=== PATIENT | male | born 1940 | race American Indian/Alaskan Native ===

== ENCOUNTER 2019-07-26 22:38 | Inpatient (IN) | payer MEDICARE ==
[2019-07-27] MEDS ORDERED: GEODON PO PRN (01:29)
[2019-07-27] MEDS ORDERED: BENADRYL PO PRN (01:34)
[2019-07-27 10:16] LABS: Basophils % (Auto) 0.7 % (0.0-1.8); Eosinophils % (Auto) 0.1 % (0.0-4.3); Hematocrit 44.2 % (35.5-45.6); Hemoglobin 14.8 gm/dl (11.8-15.2); Lymphocytes # (Auto) 1.5 K/mm3 (1.2-5.4); Lymphocytes % (Auto) 23.4 % (13.4-35.0); Mean Corpuscular HGB Conc 33 % (32-34); Mean Corpuscular Volume 90 fl (84-94); Monocytes # (Auto) 0.6 K/mm3 (0.0-0.8); Monocytes % (Auto) 10.1 % (0.0-7.3); Platelet Count 158 K/mm3 (140-440); Red Blood Count 4.94 M/mm3 (3.65-5.03); Red Cell Distribution Width 15.8 % (13.2-15.2)
[2019-07-27 10:42] LABS: Alanine Aminotransferase 20 units/L (7-56); Albumin 4.2 g/dL (3.9-5); BUN/Creatinine Ratio 32; Blood Urea Nitrogen 35 mg/dL (9-20); Calcium 9.5 mg/dL (8.4-10.2); Chol/HDL Ratio 3.09 %; HDL Cholesterol 43 mg/dL (40-59); Hemolysis Index 7; LDL Cholesterol,Direct 74 mg/dL (50-130)
[2019-07-27] MEDS: METOPROLOL XL PO SCH (11:20)
[2019-07-27] MEDS: HALFPRIN EC PO SCH (11:21)
[2019-07-27] MEDS: NAPROXEN PO SCH ×2 (11:21→21:18)
[2019-07-27] MEDS: MUCINEX ER PO SCH ×2 (11:22→21:19)
[2019-07-27] MEDS: PROVIGIL PO SCH (11:22)
[2019-07-27] MEDS: CARDIZEM CD PO SCH (11:22)
[2019-07-27] MEDS: BENADRYL IM PRN (11:26)
[2019-07-27] MEDS: EFFEXOR XR PO SCH (19:51)
[2019-07-27] MEDS: MELATONIN PO SCH (21:18)
[2019-07-27] MEDS: REMERON PO SCH (21:23)
[2019-07-28] MEDS: GEODON IM PRN ×2 (00:44→14:56)
[2019-07-28] MEDS ORDERED: WATER FOR INJ Sterile (PF) 10 ML ONE (00:49)
[2019-07-28] MEDS: HALFPRIN EC PO SCH (09:26)
[2019-07-28] MEDS: NAPROXEN PO SCH ×2 (09:26→21:39)
[2019-07-28] MEDS: MUCINEX ER PO SCH ×2 (09:26→21:39)
[2019-07-28] MEDS: EFFEXOR XR PO SCH (09:27)
[2019-07-28] MEDS: CARDIZEM CD PO SCH (09:32)
[2019-07-28] MEDS: METOPROLOL XL PO SCH (09:32)
[2019-07-28] MEDS: PROVIGIL PO SCH (10:01)
--- NOTE | 2019-07-28 18:20 | Consultation ---
History of Present Illness - Reason for Consult Consult date: 07/28/19 Atrial fibrillation, hypertension Requesting physician: SUSAN BENNETT - History of Present Illness patient admitted to Psych floor and hospitalist consulted for medical management. He is confused, cannot give history. Past History Past Medical History: hyperlipidemia, other (afib) Past Surgical History: Other (Unknown) Medications and Allergies Allergies Allergy/AdvReac Type Severity Reaction Status Date / Time aripiprazole [From Abilify] Allergy Unknown Verified 07/26/19 23:01 diazepam [From Valium] Allergy Unknown Verified 07/26/19 23:01 lithium Allergy Unknown Verified 07/26/19 23:01 lorazepam [From Ativan] Allergy Unknown Verified 07/26/19 23:01 Home Medications Medication Instructions Recorded Confirmed Last Taken Type AtorvaSTATin [Lipitor] 40 mg PO QHS 07/27/19 07/28/19 Unknown History Divalproex Sprinkle [Depakote 500 mg PO Q8H 07/27/19 07/28/19 Unknown History Sprinkle] Metoprolol Xl [Metoprolol 50 mg PO DAILY 07/27/19 07/28/19 Unknown History SUCCINATE ER TAB] Mirtazapine [Remeron 30mg TAB] 30 mg PO QHS 07/27/19 07/28/19 Unknown History Modafinil [Provigil] 100 mg PO DAILY 07/27/19 07/28/19 Unknown History Naproxen [Naproxen DR] 375 mg PO BID 07/27/19 07/28/19 Unknown History OLANzapine [ZyPREXA] 5 mg PO TID 07/27/19 07/28/19 Unknown History Venlafaxine ER 150 mg PO DAILY 07/27/19 07/28/19 Unknown History dilTIAZem CD [Cardizem Cd] 120 mg PO DAILY 07/27/19 07/27/19 Unknown History OLANzapine ZYDIS [ZyPREXA Zydis] 10 mg PO TID PRN 07/28/19 07/28/19 Unknown History Active Meds: Active Medications Aspirin (Halfprin Ec) 81 mg PO QDAY [facility] Last Admin: 07/28/19 09:26 Dose: 81 mg Documented by: Atorvastatin Calcium (Lipitor) 40 mg PO QHS [facility] Last Admin: 07/27/19 21:18 Dose: 40 mg Documented by: Diltiazem HCl (Cardizem Cd) 120 mg PO QDAY [facility] Last Admin: 07/28/19 09:32 Dose: Not Given Documented by: Diphenhydramine HCl (Benadryl) 50 mg IM Q6H PRN PRN Reason: Extrapyramidal Effects Last Admin: 07/27/19 11:26 Dose: 50 mg Documented by: Diphenhydramine HCl (Benadryl) 50 mg PO Q6H PRN PRN Reason: Extrapyramidal Effects Divalproex Sodium (Depakote Sprinkle) 500 mg PO Q8HR [facility] Last Admin: 07/28/19 13:40 Dose: 500 mg Documented by: Guaifenesin (Mucinex Er) 600 mg PO BID [facility] Last Admin: 07/28/19 09:26 Dose: 600 mg Documented by: Melatonin (Melatonin) 3 mg PO QHS [facility] Last Admin: 07/27/19 21:18 Dose: 3 mg Documented by: Metoprolol Succinate (Toprol Xl) 50 mg PO QDAY [facility] Last Admin: 07/28/19 09:32 Dose: Not Given Documented by: Mirtazapine (Remeron) 30 mg PO QHS [facility] Last Admin: 07/27/19 21:23 Dose: 30 mg Documented by: Modafinil (Provigil) 100 mg PO QAM [facility] Last Admin: 07/28/19 10:01 Dose: 100 mg Documented by: Naproxen (Naprosyn) 375 mg PO BID [facility] Last Admin: 07/28/19 09:26 Dose: 375 mg Documented by: Olanzapine (Zyprexa Zydis) 10 mg PO TID PRN PRN Reason: Agitation Last Admin: 07/27/19 17:52 Dose: 10 mg Documented by: Olanzapine (Zyprexa Zydis) 5 mg PO TID [facility] Last Admin: 07/28/19 13:41 Dose: 5 mg Documented by: Venlafaxine HCl (Effexor Xr) 150 mg PO QDAY [facility] Last Admin: 07/28/19 09:27 Dose: 150 mg Documented by: Exam - Constitutional Vitals: Temp Pulse Resp BP Pulse Ox 97.9 F 60 18 90/60 100 07/27/19 21:54 07/28/19 09:32 07/27/19 21:54 07/28/19 09:32 07/27/19 10:00 General appearance: Present: no acute distress - EENT Eyes: Present: PERRL ENT: hearing intact - Neck Neck: Present: supple - Respiratory Respiratory effort: normal Respiratory: bilateral: CTA - Cardiovascular Rhythm: regular Heart Sounds: Present: S1 & S2 (S1 and S2 ) - Extremities Extremities: No edema Extremity abnormal: other (small abrasions,ulcer on legs) - Abdominal General gastrointestinal: Present: soft, non-tender, non-distended, normal bowel sounds - Integumentary Integumentary: Present: clear, warm, dry - Musculoskeletal Musculoskeletal: strength equal bilaterally - Neurologic Neurologic: moves all extremities, other (awake,alert,confused) Results - Labs CBC & Chem 7: 07/27/19 09:24 07/27/19 09:24 Assessment and Plan Hyperlipidemia cont statin Afib Obtain EKG for baseline
[2019-07-28] MEDS: MELATONIN PO SCH (21:40)
[2019-07-28] MEDS: REMERON PO SCH (21:40)
[2019-07-29] MEDS: CARDIZEM CD PO SCH (10:35)
[2019-07-29] MEDS: PROVIGIL PO SCH (10:35)
[2019-07-29] MEDS: NAPROXEN PO SCH ×2 (10:36→21:32)
[2019-07-29] MEDS: HALFPRIN EC PO SCH (10:37)
[2019-07-29] MEDS: MUCINEX ER PO SCH ×2 (10:37→21:31)
[2019-07-29] MEDS: METOPROLOL XL PO SCH (10:37)
[2019-07-29] MEDS: EFFEXOR XR PO SCH (10:37)
[2019-07-29] MEDS: HALDOL IM PRN (14:55)
[2019-07-29] MEDS: BENADRYL IM PRN (14:55)
--- NOTE | 2019-07-29 15:22 | History and Physical Report ---
GP History & Physical - History of Present Illness Date of admission: 07/27/19 Date of Examination: 07/28/19 Reason for Admission: Danger to others, Unable to care for self Chief Complaint: Aggression History of Present Illness: Patient is a 78yo male with reported history of psychosis, schizoaffective disorder and aggressive behavior. He was presents to the Behavioral Health Unit with c/o aggressive behavior, not cooperative with cares and disruptive behaviors. He is confused, agitated and unable to give history. Legal Status: Involuntary Patient Problems: Current Active Problems Major neurocognitive disorder due to Alzheimer's disease, with behavioral disturbance (Acute) Schizoaffective disorder, bipolar type (Acute) Reaction to Hospitalization: Resistant Medications and Allergies Allergies Allergy/AdvReac Type Severity Reaction Status Date / Time aripiprazole [From Abilify] Allergy Unknown Verified 07/26/19 23:01 diazepam [From Valium] Allergy Unknown Verified 07/26/19 23:01 lithium Allergy Unknown Verified 07/26/19 23:01 lorazepam [From Ativan] Allergy Unknown Verified 07/26/19 23:01 Home Medications Medication Instructions Recorded Confirmed Last Taken Type AtorvaSTATin [Lipitor] 40 mg PO QHS 07/27/19 07/28/19 Unknown History Divalproex Sprinkle [Depakote 500 mg PO Q8H 07/27/19 07/28/19 Unknown History Sprinkle] Metoprolol Xl [Metoprolol 50 mg PO DAILY 07/27/19 07/28/19 Unknown History SUCCINATE ER TAB] Mirtazapine [Remeron 30mg TAB] 30 mg PO QHS 07/27/19 07/28/19 Unknown History Modafinil [Provigil] 100 mg PO DAILY 07/27/19 07/28/19 Unknown History Naproxen [Naproxen DR] 375 mg PO BID 07/27/19 07/28/19 Unknown History OLANzapine [ZyPREXA] 5 mg PO TID 07/27/19 07/28/19 Unknown History Venlafaxine ER 150 mg PO DAILY 07/27/19 07/28/19 Unknown History dilTIAZem CD [Cardizem Cd] 120 mg PO DAILY 07/27/19 07/27/19 Unknown History OLANzapine ZYDIS [ZyPREXA Zydis] 10 mg PO TID PRN 07/28/19 07/28/19 Unknown History Active Meds: Active Medications Aspirin (Halfprin Ec) 81 mg PO QDAY [facility] Last Admin: 07/29/19 10:37 Dose: 81 mg Documented by: Atorvastatin Calcium (Lipitor) 40 mg PO QHS [facility] Last Admin: 07/28/19 21:39 Dose: 40 mg Documented by: Diltiazem HCl (Cardizem Cd) 120 mg PO QDAY [facility] Last Admin: 07/29/19 10:35 Dose: 120 mg Documented by: Diphenhydramine HCl (Benadryl) 50 mg IM Q6H PRN PRN Reason: Extrapyramidal Effects Last Admin: 07/29/19 14:55 Dose: 50 mg Documented by: Diphenhydramine HCl (Benadryl) 50 mg PO Q6H PRN PRN Reason: Extrapyramidal Effects Divalproex Sodium (Depakote Sprinkle) 500 mg PO Q8HR [facility] Last Admin: 07/29/19 14:23 Dose: 500 mg Documented by: Guaifenesin (Mucinex Er) 600 mg PO BID [facility] Last Admin: 07/29/19 10:37 Dose: 600 mg Documented by: Haloperidol (Haldol) 5 mg PO Q6H PRN PRN Reason: Agitation Haloperidol Lactate (Haldol) 5 mg IM Q6H PRN PRN Reason: Agitation Last Admin: 07/29/19 14:55 Dose: 5 mg Documented by: Melatonin (Melatonin) 3 mg PO QHS [facility] Last Admin: 07/28/19 21:40 Dose: 3 mg Documented by: Metoprolol Succinate (Toprol Xl) 50 mg PO QDAY [facility] Last Admin: 07/29/19 10:37 Dose: 50 mg Documented by: Mirtazapine (Remeron) 30 mg PO QHS [facility] Last Admin: 07/28/19 21:40 Dose: 30 mg Documented by: Modafinil (Provigil) 100 mg PO QAM [facility] Last Admin: 07/29/19 10:35 Dose: 100 mg Documented by: Naproxen (Naprosyn) 375 mg PO BID [facility] Last Admin: 07/29/19 10:36 Dose: 375 mg Documented by: Olanzapine (Zyprexa Zydis) 10 mg PO TID PRN PRN Reason: Agitation Last Admin: 07/27/19 17:52 Dose: 10 mg Documented by: Olanzapine (Zyprexa Zydis) 5 mg PO TID [facility] Last Admin: 07/29/19 14:24 Dose: 5 mg Documented by: Venlafaxine HCl (Effexor Xr) 150 mg PO QDAY [facility] Last Admin: 07/29/19 10:37 Dose: 150 mg Documented by: Substance History - Substance History Drug Use: none Hx Tobacco Use: No Alcohol Use: No Past psychiatric history - Past Medical History Past Medical History: hyperlipidemia - past Psychiatric treatment and history Psych: Psychosis - Social History Social history: other (Unable to obtain Social history) Review of Systems ROS unobtainable: due to mental status Results - Results Labs/Vitals: Laboratory Last Values WBC 6.2 K/mm3 (4.5-11.0) 07/27/19 09:24 RBC 4.94 M/mm3 (3.65-5.03) 07/27/19 09:24 Hgb 14.8 gm/dl (11.8-15.2) 07/27/19 09:24 Hct 44.2 % (35.5-45.6) 07/27/19 09:24 MCV 90 fl (84-94) 07/27/19 09:24 MCH 30 pg (28-32) 07/27/19 09:24 MCHC 33 % (32-34) 07/27/19 09:24 RDW 15.8 % (13.2-15.2) H 07/27/19 09:24 Plt Count 158 K/mm3 (140-440) 07/27/19 09:24 Lymph % (Auto) 23.4 % (13.4-35.0) 07/27/19 09:24 [place] % (Auto) 10.1 % (0.0-7.3) H 07/27/19 09:24 Eos % (Auto) 0.1 % (0.0-4.3) 07/27/19 09:24 Baso % (Auto) 0.7 % (0.0-1.8) 07/27/19 09:24 Lymph # 1.5 K/mm3 (1.2-5.4) 07/27/19 09:24 [place] # 0.6 K/mm3 (0.0-0.8) 07/27/19 09:24 Eos # 0.0 K/mm3 (0.0-0.4) 07/27/19 09:24 Baso # 0.0 K/mm3 (0.0-0.1) 07/27/19 09:24 Seg Neutrophils % 65.7 % (40.0-70.0) 07/27/19 09:24 Seg Neutrophils # 4.1 K/mm3 (1.8-7.7) 07/27/19 09:24 Sodium 145 mmol/L (137-145) 07/27/19 09:24 Potassium 4.3 mmol/L (3.6-5.0) 07/27/19 09:24 Chloride 104.1 mmol/L (98-107) 07/27/19 09:24 Carbon Dioxide 25 mmol/L (22-30) 07/27/19 09:24 Anion Gap 20 mmol/L 07/27/19 09:24 BUN 35 mg/dL (9-20) H 07/27/19 09:24 Creatinine 1.1 mg/dL (0.8-1.5) 07/27/19 09:24 Estimated GFR > 60 ml/min 07/27/19 09:24 BUN/Creatinine Ratio 32 % 07/27/19 09:24 Glucose 98 mg/dL (75-100) 07/27/19 09:24 POC Glucose 106 (70-105) H 07/27/19 16:39 Hemoglobin A1c 5.5 % (4-6) 07/27/19 09:24 Calcium 9.5 mg/dL (8.4-10.2) 07/27/19 09:24 Total Bilirubin 0.40 mg/dL (0.1-1.2) 07/27/19 09:24 AST 29 units/L (5-40) 07/27/19 09:24 ALT 20 units/L (7-56) 07/27/19 09:24 Alkaline Phosphatase 83 units/L (35-129) 07/27/19 09:24 Total Protein 6.5 g/dL (6.3-8.2) 07/27/19 09:24 Albumin 4.2 g/dL (3.9-5) 07/27/19 09:24 Albumin/Globulin Ratio 1.8 % 07/27/19 09:24 Triglycerides 129 mg/dL (2-149) 07/27/19 09:24 Cholesterol 133 mg/dL (50-199) 07/27/19 09:24 LDL Cholesterol Direct 74 mg/dL (50-130) 07/27/19 09:24 HDL Cholesterol 43 mg/dL (40-59) 07/27/19 09:24 Cholesterol/HDL Ratio 3.09 % 07/27/19 09:24 TSH 3.070 mlU/mL (0.270-4.200) 07/27/19 09:24 Valproic Acid 31.8 ug/mL (50-100) L 07/27/19 09:24 RPR Nonreactive (Nonreactive) 07/27/19 09:24 Last Vital Signs Temp 98.3 F 07/28/19 22:00 Pulse 89 07/29/19 10:37 Resp 20 07/28/19 22:00 BP 173/94 07/29/19 10:37 Pulse Ox 98 07/28/19 22:00 Physical Examination - Constitutional Vitals: Vital Signs Temp Pulse Resp BP Pulse Ox 98.3 F 89 20 173/94 98 07/28/19 22:00 07/29/19 10:37 07/28/19 22:00 07/29/19 10:37 07/28/19 22:00 Temperature -Last 24 Hours Temperature 98.3 F General appearance: Present: no acute distress - EENT Eyes: Present: PERRL, EOM intact ENT: hearing intact, clear oral mucosa - Neck Neck: Present: supple, normal ROM - Respiratory Respiratory effort: normal Mental Status Exam - Vital signs Last Vital Signs Temp 98.3 F 07/28/19 22:00 Pulse 89 07/29/19 10:37 Resp 20 07/28/19 22:00 BP 173/94 07/29/19 10:37 Pulse Ox 98 07/28/19 22:00 - Exam Orientation: person Affect: agitated Mood: congruent with affect Thought Process: Disorganized Perceptions: none Speech: paucity Concentration: unable to pay attention Motor activity: agitated Level of consciousness: alert Memory: Recent Impaired, Remote Impaired Interaction: hostile, uncooperative Assessment and Plan - Psychiatric problem (1) Major neurocognitive disorder due to Alzheimer's disease, with behavioral disturbance Current Visit: Yes Status: Acute (2) Schizoaffective disorder, bipolar type Current Visit: Yes Status: Acute plan to address problem: Patient will be admitted for inpatient psychiatric evaluation, medication adjustment and close monitoring The patient's behavior, mood, sleep and appetite will be closely monitored. Patient will be enrolled in individual and group therapeutic sessions and encouraged to attend. Patient will be provided with a safe and structured environment. Patient's physical health needs will be addressed by the Hospitalist. Social Assessment will be completed and the Social Science Analyst will work with patient and family to ensure a suitable and safe disposition Medication adjustment will be made as clinically indicated The patient agreed on the treatment plan, understood the risk, benefit, alternative treatment, potential consequence of no treatment, and gave informed consent. Physician Certification - Certification Statement Physician Certification Statement: This is an acknowledgement statement that BEATA KEEN is a 78 year old M who requires inpatient psychiatric admission for treatment which could reasonably be expected to improve the patient's condition for behavioral disturbance Estimated period of time patient will need to remain in the hospital: 7 days Plan for post-hospital care: Out-patient care
--- NOTE | 2019-07-29 15:49 | Progress Note ---
Subjective Date of service: 07/29/19 Principal diagnosis: Dementia, Schizoaffective disorder Subjective Comment: The patient patient's mood is labile and he is very unpredictable, can be combative, impulsive, and irritable but calm and cooperative some times. He is irritable, threatening and uncooperative this morning. MSE Orientation: person Affect: agitated Mood: congruent with affect Thought Process: Disorganized Perceptions: none Speech: paucity Concentration: unable to pay attention Motor activity: agitated Level of consciousness: alert Memory: Recent Impaired, Remote Impaired Interaction: hostile, uncooperative Objective - Criteria for Continued Treatment Criteria for Continued Treatment: Improving Level of Functioning, Stablizing Level of Functioning, Improving Emotional/Socia - Objective Observation Participation Level: Minimal Assessment and Plan - Patient Problems (1) Major neurocognitive disorder due to Alzheimer's disease, with behavioral disturbance Current Visit: Yes Status: Acute (2) Schizoaffective disorder, bipolar type Current Visit: Yes Status: Acute Plan to address problem: Patient will be admitted for inpatient psychiatric evaluation, medication adjustment and close monitoring The patient's behavior, mood, sleep and appetite will be closely monitored. Patient will be enrolled in individual and group therapeutic sessions and encouraged to attend. Patient will be provided with a safe and structured environment. Patient's physical health needs will be addressed by the Hospitalist. Social Assessment will be completed and the Fretted Instrument Inspector will work with patient and family to ensure a suitable and safe disposition Medication adjustment will be made as clinically indicated The patient agreed on the treatment plan, understood the risk, benefit, alternative treatment, potential consequence of no treatment, and gave informed consent. Medications and Allergies Allergies Allergy/AdvReac Type Severity Reaction Status Date / Time aripiprazole [From Abilify] Allergy Unknown Verified 07/26/19 23:01 diazepam [From Valium] Allergy Unknown Verified 07/26/19 23:01 lithium Allergy Unknown Verified 07/26/19 23:01 lorazepam [From Ativan] Allergy Unknown Verified 07/26/19 23:01 Home Medications Medication Instructions Recorded Confirmed Last Taken Type AtorvaSTATin [Lipitor] 40 mg PO QHS 07/27/19 07/28/19 Unknown History Divalproex Sprinkle [Depakote 500 mg PO Q8H 07/27/19 07/28/19 Unknown History Sprinkle] Metoprolol Xl [Metoprolol 50 mg PO DAILY 07/27/19 07/28/19 Unknown History SUCCINATE ER TAB] Mirtazapine [Remeron 30mg TAB] 30 mg PO QHS 07/27/19 07/28/19 Unknown History Modafinil [Provigil] 100 mg PO DAILY 07/27/19 07/28/19 Unknown History Naproxen [Naproxen DR] 375 mg PO BID 07/27/19 07/28/19 Unknown History OLANzapine [ZyPREXA] 5 mg PO TID 07/27/19 07/28/19 Unknown History Venlafaxine ER 150 mg PO DAILY 07/27/19 07/28/19 Unknown History dilTIAZem CD [Cardizem Cd] 120 mg PO DAILY 07/27/19 07/27/19 Unknown History OLANzapine ZYDIS [ZyPREXA Zydis] 10 mg PO TID PRN 07/28/19 07/28/19 Unknown History Active Meds: Active Medications Aspirin (Halfprin Ec) 81 mg PO QDAY [facility] Last Admin: 07/29/19 10:37 Dose: 81 mg Documented by: Atorvastatin Calcium (Lipitor) 40 mg PO QHS [facility] Last Admin: 07/28/19 21:39 Dose: 40 mg Documented by: Diltiazem HCl (Cardizem Cd) 120 mg PO QDAY [facility] Last Admin: 07/29/19 10:35 Dose: 120 mg Documented by: Diphenhydramine HCl (Benadryl) 50 mg IM Q6H PRN PRN Reason: Extrapyramidal Effects Last Admin: 07/29/19 14:55 Dose: 50 mg Documented by: Diphenhydramine HCl (Benadryl) 50 mg PO Q6H PRN PRN Reason: Extrapyramidal Effects Divalproex Sodium (Depakote Sprinkle) 500 mg PO Q8HR [facility] Last Admin: 07/29/19 14:23 Dose: 500 mg Documented by: Guaifenesin (Mucinex Er) 600 mg PO BID [facility] Last Admin: 07/29/19 10:37 Dose: 600 mg Documented by: Haloperidol (Haldol) 5 mg PO Q6H PRN PRN Reason: Agitation Haloperidol Lactate (Haldol) 5 mg IM Q6H PRN PRN Reason: Agitation Last Admin: 07/29/19 14:55 Dose: 5 mg Documented by: Melatonin (Melatonin) 3 mg PO QHS [facility] Last Admin: 07/28/19 21:40 Dose: 3 mg Documented by: Metoprolol Succinate (Toprol Xl) 50 mg PO QDAY [facility] Last Admin: 07/29/19 10:37 Dose: 50 mg Documented by: Mirtazapine (Remeron) 30 mg PO QHS [facility] Last Admin: 07/28/19 21:40 Dose: 30 mg Documented by: Modafinil (Provigil) 100 mg PO QAM [facility] Last Admin: 07/29/19 10:35 Dose: 100 mg Documented by: Naproxen (Naprosyn) 375 mg PO BID [facility] Last Admin: 07/29/19 10:36 Dose: 375 mg Documented by: Olanzapine (Zyprexa Zydis) 10 mg PO TID PRN PRN Reason: Agitation Last Admin: 07/27/19 17:52 Dose: 10 mg Documented by: Olanzapine (Zyprexa Zydis) 5 mg PO TID [facility] Last Admin: 07/29/19 14:24 Dose: 5 mg Documented by: Venlafaxine HCl (Effexor Xr) 150 mg PO QDAY [facility] Last Admin: 07/29/19 10:37 Dose: 150 mg Documented by: Results - Results Labs/Vitals: Laboratory Last Values WBC 6.2 K/mm3 (4.5-11.0) 07/27/19 09:24 RBC 4.94 M/mm3 (3.65-5.03) 07/27/19 09:24 Hgb 14.8 gm/dl (11.8-15.2) 07/27/19 09:24 Hct 44.2 % (35.5-45.6) 07/27/19 09:24 MCV 90 fl (84-94) 07/27/19 09:24 MCH 30 pg (28-32) 07/27/19 09:24 MCHC 33 % (32-34) 07/27/19 09:24 RDW 15.8 % (13.2-15.2) H 07/27/19 09:24 Plt Count 158 K/mm3 (140-440) 07/27/19 09:24 Lymph % (Auto) 23.4 % (13.4-35.0) 07/27/19 09:24 [place] % (Auto) 10.1 % (0.0-7.3) H 07/27/19 09:24 Eos % (Auto) 0.1 % (0.0-4.3) 07/27/19 09:24 Baso % (Auto) 0.7 % (0.0-1.8) 07/27/19 09:24 Lymph # 1.5 K/mm3 (1.2-5.4) 07/27/19 09:24 [place] # 0.6 K/mm3 (0.0-0.8) 07/27/19 09:24 Eos # 0.0 K/mm3 (0.0-0.4) 07/27/19 09:24 Baso # 0.0 K/mm3 (0.0-0.1) 07/27/19 09:24 Seg Neutrophils % 65.7 % (40.0-70.0) 07/27/19 09:24 Seg Neutrophils # 4.1 K/mm3 (1.8-7.7) 07/27/19 09:24 Sodium 145 mmol/L (137-145) 07/27/19 09:24 Potassium 4.3 mmol/L (3.6-5.0) 07/27/19 09:24 Chloride 104.1 mmol/L (98-107) 07/27/19 09:24 Carbon Dioxide 25 mmol/L (22-30) 07/27/19 09:24 Anion Gap 20 mmol/L 07/27/19 09:24 BUN 35 mg/dL (9-20) H 07/27/19 09:24 Creatinine 1.1 mg/dL (0.8-1.5) 07/27/19 09:24 Estimated GFR > 60 ml/min 07/27/19 09:24 BUN/Creatinine Ratio 32 % 07/27/19 09:24 Glucose 98 mg/dL (75-100) 07/27/19 09:24 POC Glucose 106 (70-105) H 07/27/19 16:39 Hemoglobin A1c 5.5 % (4-6) 07/27/19 09:24 Calcium 9.5 mg/dL (8.4-10.2) 07/27/19 09:24 Total Bilirubin 0.40 mg/dL (0.1-1.2) 07/27/19 09:24 AST 29 units/L (5-40) 07/27/19 09:24 ALT 20 units/L (7-56) 07/27/19 09:24 Alkaline Phosphatase 83 units/L (35-129) 07/27/19 09:24 Total Protein 6.5 g/dL (6.3-8.2) 07/27/19 09:24 Albumin 4.2 g/dL (3.9-5) 07/27/19 09:24 Albumin/Globulin Ratio 1.8 % 07/27/19 09:24 Triglycerides 129 mg/dL (2-149) 07/27/19 09:24 Cholesterol 133 mg/dL (50-199) 07/27/19 09:24 LDL Cholesterol Direct 74 mg/dL (50-130) 07/27/19 09:24 HDL Cholesterol 43 mg/dL (40-59) 07/27/19 09:24 Cholesterol/HDL Ratio 3.09 % 07/27/19 09:24 TSH 3.070 mlU/mL (0.270-4.200) 07/27/19 09:24 Valproic Acid 31.8 ug/mL (50-100) L 07/27/19 09:24 RPR Nonreactive (Nonreactive) 07/27/19 09:24 Last Vital Signs Temp 98.3 F 07/28/19 22:00 Pulse 89 07/29/19 10:37 Resp 20 07/28/19 22:00 BP 173/94 07/29/19 10:37 Pulse Ox 98 07/28/19 22:00
[2019-07-29] MEDS: REMERON PO SCH (21:31)
[2019-07-29] MEDS: MELATONIN PO SCH (21:32)
--- NOTE | 2019-07-30 07:23 | Progress Note ---
Subjective Date of service: 07/30/19 Principal diagnosis: Dementia, Schizoaffective disorder Subjective Comment: Patient seen by me this morning. He is restless, agitated and confused. Per nursing notes patient is alert and oriented to person. Patient has been irritable and restless, Pt continues to be impulsive and unpredictable. He is a/o to self and is able to follow simple directions. Pt is currently taking prn meds to stay calm. Pt is compliant with meds when crushed, appetite is good, pt needs assistance with feeding and with adls. Pt is able to stand and pivot, gait unsteady and he remains a high fall risk. Pt slept well hob elevated due to sleep apnea and snoring. Pt slept for 7 hrs. MSE Orientation: person Affect: agitated Mood: congruent with affect Thought Process: Disorganized Perceptions: none Speech: paucity Concentration: unable to pay attention Motor activity: agitated Level of consciousness: alert Memory: Recent Impaired, Remote Impaired Interaction: hostile, uncooperative Objective - Criteria for Continued Treatment Criteria for Continued Treatment: Improving Level of Functioning, Stablizing Level of Functioning, Improving Emotional/Socia - Objective Observation Participation Level: Minimal Assessment and Plan - Patient Problems (1) Major neurocognitive disorder due to Alzheimer's disease, with behavioral disturbance Current Visit: Yes Status: Acute (2) Schizoaffective disorder, bipolar type Current Visit: Yes Status: Acute Plan to address problem: Patient will be admitted for inpatient psychiatric evaluation, medication adjustment and close monitoring The patient's behavior, mood, sleep and appetite will be closely monitored. Patient will be enrolled in individual and group therapeutic sessions and encouraged to attend. Patient will be provided with a safe and structured environment. Patient's physical health needs will be addressed by the Hospitalist. Social Assessment will be completed and the Wood Carver will work with patient and family to ensure a suitable and safe disposition Medication adjustment will be made as clinically indicated Check Depakote level in am tomorrow. The patient agreed on the treatment plan, understood the risk, benefit, alternative treatment, potential consequence of no treatment, and gave informed consent. Medications and Allergies Allergies Allergy/AdvReac Type Severity Reaction Status Date / Time aripiprazole [From Abilify] Allergy Unknown Verified 07/26/19 23:01 diazepam [From Valium] Allergy Unknown Verified 07/26/19 23:01 lithium Allergy Unknown Verified 07/26/19 23:01 lorazepam [From Ativan] Allergy Unknown Verified 07/26/19 23:01 Home Medications Medication Instructions Recorded Confirmed Last Taken Type AtorvaSTATin [Lipitor] 40 mg PO QHS 07/27/19 07/28/19 Unknown History Divalproex Sprinkle [Depakote 500 mg PO Q8H 07/27/19 07/28/19 Unknown History Sprinkle] Metoprolol Xl [Metoprolol 50 mg PO DAILY 07/27/19 07/28/19 Unknown History SUCCINATE ER TAB] Mirtazapine [Remeron 30mg TAB] 30 mg PO QHS 07/27/19 07/28/19 Unknown History Modafinil [Provigil] 100 mg PO DAILY 07/27/19 07/28/19 Unknown History Naproxen [Naproxen DR] 375 mg PO BID 07/27/19 07/28/19 Unknown History OLANzapine [ZyPREXA] 5 mg PO TID 07/27/19 07/28/19 Unknown History Venlafaxine ER 150 mg PO DAILY 07/27/19 07/28/19 Unknown History dilTIAZem CD [Cardizem Cd] 120 mg PO DAILY 07/27/19 07/27/19 Unknown History OLANzapine ZYDIS [ZyPREXA Zydis] 10 mg PO TID PRN 07/28/19 07/28/19 Unknown History Active Meds: Active Medications Aspirin (Halfprin Ec) [address] [facility] Last Admin: 07/29/19 10:37 Dose: 81 mg Documented by: Atorvastatin Calcium (Lipitor) [address] [facility] Last Admin: 07/29/19 21:31 Dose: 40 mg Documented by: Diltiazem HCl (Cardizem Cd) [address] [facility] Last Admin: 07/29/19 10:35 Dose: 120 mg Documented by: Diphenhydramine HCl (Benadryl) 50 mg IM Q6H PRN PRN Reason: Extrapyramidal Effects Last Admin: 07/29/19 14:55 Dose: 50 mg Documented by: Diphenhydramine HCl (Benadryl) 50 mg PO Q6H PRN PRN Reason: Extrapyramidal Effects Divalproex Sodium (Depakote Sprinkle) [address] [facility] Last Admin: 07/30/19 06:07 Dose: 500 mg Documented by: Guaifenesin (Mucinex Er) [address] [facility] Last Admin: 07/29/19 21:31 Dose: 600 mg Documented by: Haloperidol (Haldol) 5 mg PO Q6H PRN PRN Reason: Agitation Haloperidol Lactate (Haldol) 5 mg IM Q6H PRN PRN Reason: Agitation Last Admin: 07/29/19 14:55 Dose: 5 mg Documented by: Melatonin (Melatonin) [address] [facility] Last Admin: 07/29/19 21:32 Dose: 3 mg Documented by: Metoprolol Succinate (Toprol Xl) [address] [facility] Last Admin: 07/29/19 10:37 Dose: 50 mg Documented by: Mirtazapine (Remeron) [address] [facility] Last Admin: 07/29/19 21:31 Dose: 30 mg Documented by: Modafinil (Provigil) [address] [facility] Last Admin: 07/29/19 10:35 Dose: 100 mg Documented by: Naproxen (Naprosyn) [address] [facility] Last Admin: 07/29/19 21:32 Dose: 375 mg Documented by: Olanzapine (Zyprexa Zydis) 10 mg PO TID PRN PRN Reason: Agitation Last Admin: 07/27/19 17:52 Dose: 10 mg Documented by: Olanzapine (Zyprexa Zydis) [address] [facility] Last Admin: 07/29/19 20:00 Dose: 5 mg Documented by: Venlafaxine HCl (Effexor Xr) [address] [facility] Last Admin: 07/29/19 10:37 Dose: 150 mg Documented by: Results - Results Labs/Vitals: Laboratory Last Values WBC 6.2 K/mm3 (4.5-11.0) 07/27/19 09:24 RBC 4.94 M/mm3 (3.65-5.03) 07/27/19 09:24 Hgb 14.8 gm/dl (11.8-15.2) 07/27/19 09:24 Hct 44.2 % (35.5-45.6) 07/27/19 09:24 MCV 90 fl (84-94) 07/27/19 09:24 MCH 30 pg (28-32) 07/27/19 09:24 MCHC 33 % (32-34) 07/27/19 09:24 RDW 15.8 % (13.2-15.2) H 07/27/19 09:24 Plt Count 158 K/mm3 (140-440) 07/27/19 09:24 Lymph % (Auto) 23.4 % (13.4-35.0) 07/27/19 09:24 [place] % (Auto) 10.1 % (0.0-7.3) H 07/27/19 09:24 Eos % (Auto) 0.1 % (0.0-4.3) 07/27/19 09:24 Baso % (Auto) 0.7 % (0.0-1.8) 07/27/19 09:24 Lymph # 1.5 K/mm3 (1.2-5.4) 07/27/19 09:24 Grant # 0.6 K/mm3 (0.0-0.8) 07/27/19 09:24 Eos # 0.0 K/mm3 (0.0-0.4) 07/27/19 09:24 Baso # 0.0 K/mm3 (0.0-0.1) 07/27/19 09:24 Seg Neutrophils % 65.7 % (40.0-70.0) 07/27/19 09:24 Seg Neutrophils # 4.1 K/mm3 (1.8-7.7) 07/27/19 09:24 Sodium 145 mmol/L (137-145) 07/27/19 09:24 Potassium 4.3 mmol/L (3.6-5.0) 07/27/19 09:24 Chloride 104.1 mmol/L (98-107) 07/27/19 09:24 Carbon Dioxide 25 mmol/L (22-30) 07/27/19 09:24 Anion Gap 20 mmol/L 07/27/19 09:24 BUN 35 mg/dL (9-20) H 07/27/19 09:24 Creatinine 1.1 mg/dL (0.8-1.5) 07/27/19 09:24 Estimated GFR > 60 ml/min 07/27/19 09:24 BUN/Creatinine Ratio 32 % 07/27/19 09:24 Glucose 98 mg/dL (75-100) 07/27/19 09:24 POC Glucose 106 (70-105) H 07/27/19 16:39 Hemoglobin A1c 5.5 % (4-6) 07/27/19 09:24 Calcium 9.5 mg/dL (8.4-10.2) 07/27/19 09:24 Total Bilirubin 0.40 mg/dL (0.1-1.2) 07/27/19 09:24 AST 29 units/L (5-40) 07/27/19 09:24 ALT 20 units/L (7-56) 07/27/19 09:24 Alkaline Phosphatase 83 units/L (35-129) 07/27/19 09:24 Total Protein 6.5 g/dL (6.3-8.2) 07/27/19 09:24 Albumin 4.2 g/dL (3.9-5) 07/27/19 09:24 Albumin/Globulin Ratio 1.8 % 07/27/19 09:24 Triglycerides 129 mg/dL (2-149) 07/27/19 09:24 Cholesterol 133 mg/dL (50-199) 07/27/19 09:24 LDL Cholesterol Direct 74 mg/dL (50-130) 07/27/19 09:24 HDL Cholesterol 43 mg/dL (40-59) 07/27/19 09:24 Cholesterol/HDL Ratio 3.09 % 07/27/19 09:24 TSH 3.070 mlU/mL (0.270-4.200) 07/27/19 09:24 Valproic Acid 31.8 ug/mL (50-100) L 07/27/19 09:24 RPR Nonreactive (Nonreactive) 07/27/19 09:24 Last Vital Signs Temp 98.2 F 07/29/19 19:23 Pulse 79 07/29/19 19:23 Resp 20 07/29/19 19:23 BP 125/85 07/29/19 19:23 Pulse Ox 99 07/29/19 19:23
[2019-07-30] MEDS: EFFEXOR XR PO SCH (09:24)
[2019-07-30] MEDS: NAPROXEN PO SCH ×2 (09:24→21:54)
[2019-07-30] MEDS: MUCINEX ER PO SCH ×2 (09:24→21:55)
[2019-07-30] MEDS: HALFPRIN EC PO SCH (09:24)
[2019-07-30] MEDS: PROVIGIL PO SCH (09:24)
[2019-07-30] MEDS: HALDOL PO PRN (09:25)
[2019-07-30] MEDS: METOPROLOL XL PO SCH (09:29)
[2019-07-30] MEDS: CARDIZEM CD PO SCH (09:29)
[2019-07-30] MEDS: BENADRYL IM PRN (10:30)
[2019-07-30] MEDS: HALDOL IM PRN (16:01)
[2019-07-30] MEDS: REMERON PO SCH (21:55)
[2019-07-30] MEDS: MELATONIN PO SCH (21:55)
[2019-07-31] MEDS: PROVIGIL PO SCH (10:46)
[2019-07-31] MEDS: EFFEXOR XR PO SCH (10:48)
[2019-07-31] MEDS: NAPROXEN PO SCH ×2 (10:50→21:01)
[2019-07-31] MEDS: MUCINEX ER PO SCH ×2 (10:50→21:00)
[2019-07-31] MEDS: CARDIZEM CD PO SCH (10:59)
[2019-07-31] MEDS: METOPROLOL XL PO SCH (11:00)
[2019-07-31] MEDS: HALFPRIN EC PO SCH (11:00)
[2019-07-31] MEDS: HALDOL PO PRN (15:18)
[2019-07-31] MEDS: MELATONIN PO SCH (21:00)
[2019-07-31] MEDS: REMERON PO SCH (21:01)
--- NOTE | 2019-07-31 22:15 | Progress Note ---
Subjective Date of service: 07/31/19 Principal diagnosis: Dementia, Schizoaffective disorder Subjective Comment: No new event. Pt continues to be impulsive and unpredictable. He is a/o to self and is able to follow simple directions. Serum Valproic acid level this morning 67.4 MSE Orientation: person Affect: agitated Mood: congruent with affect Thought Process: Disorganized Perceptions: none Speech: paucity Concentration: unable to pay attention Motor activity: agitated Level of consciousness: alert Memory: Recent Impaired, Remote Impaired Interaction: hostile, uncooperative Objective - Criteria for Continued Treatment Criteria for Continued Treatment: Reducing Isolative Behaviors, Stablizing Level of Functioning, Improving Emotional/Socia - Objective Observation Participation Level: Minimal Reason(s) For Not Participating: Unable Assessment and Plan - Patient Problems (1) Major neurocognitive disorder due to Alzheimer's disease, with behavioral disturbance Current Visit: Yes Status: Acute (2) Schizoaffective disorder, bipolar type Current Visit: Yes Status: Acute Plan to address problem: Patient will be admitted for inpatient psychiatric evaluation, medication adjustment and close monitoring The patient's behavior, mood, sleep and appetite will be closely monitored. Patient will be enrolled in individual and group therapeutic sessions and encouraged to attend. Patient will be provided with a safe and structured environment. Patient's physical health needs will be addressed by the Hospitalist. Social Assessment will be completed and the Associate Professor Of Engineering will work with patient and family to ensure a suitable and safe disposition Medication adjustment will be made as clinically indicated The patient agreed on the treatment plan, understood the risk, benefit, alternative treatment, potential consequence of no treatment, and gave informed consent. Medications and Allergies Allergies Allergy/AdvReac Type Severity Reaction Status Date / Time aripiprazole [From Abilify] Allergy Unknown Verified 07/26/19 23:01 diazepam [From Valium] Allergy Unknown Verified 07/26/19 23:01 lithium Allergy Unknown Verified 07/26/19 23:01 lorazepam [From Ativan] Allergy Unknown Verified 07/26/19 23:01 Home Medications Medication Instructions Recorded Confirmed Last Taken Type AtorvaSTATin [Lipitor] 40 mg PO QHS 07/27/19 07/28/19 Unknown History Divalproex Sprinkle [Depakote 500 mg PO Q8H 07/27/19 07/28/19 Unknown History Sprinkle] Metoprolol Xl [Metoprolol 50 mg PO DAILY 07/27/19 07/28/19 Unknown History SUCCINATE ER TAB] Mirtazapine [Remeron 30mg TAB] 30 mg PO QHS 07/27/19 07/28/19 Unknown History Modafinil [Provigil] 100 mg PO DAILY 07/27/19 07/28/19 Unknown History Naproxen [Naproxen DR] 375 mg PO BID 07/27/19 07/28/19 Unknown History OLANzapine [ZyPREXA] 5 mg PO TID 07/27/19 07/28/19 Unknown History Venlafaxine ER 150 mg PO DAILY 07/27/19 07/28/19 Unknown History dilTIAZem CD [Cardizem Cd] 120 mg PO DAILY 07/27/19 07/27/19 Unknown History OLANzapine ZYDIS [ZyPREXA Zydis] 10 mg PO TID PRN 07/28/19 07/28/19 Unknown History Active Meds: Active Medications Aspirin (Halfprin Ec) 81 mg PO QDAY [facility] Last Admin: 07/31/19 11:00 Dose: 81 mg Documented by: Atorvastatin Calcium (Lipitor) 40 mg PO QHS [facility] Last Admin: 07/31/19 21:01 Dose: 40 mg Documented by: Diltiazem HCl (Cardizem Cd) 120 mg PO QDAY [facility] Last Admin: 07/31/19 10:59 Dose: 120 mg Documented by: Diphenhydramine HCl (Benadryl) 50 mg IM Q6H PRN PRN Reason: Extrapyramidal Effects Last Admin: 07/30/19 10:30 Dose: 50 mg Documented by: Diphenhydramine HCl (Benadryl) 50 mg PO Q6H PRN PRN Reason: Extrapyramidal Effects Divalproex Sodium (Depakote Sprinkle) 500 mg PO Q8HR [facility] Last Admin: 07/31/19 21:01 Dose: 500 mg Documented by: Guaifenesin (Mucinex Er) 600 mg PO BID [facility] Last Admin: 07/31/19 21:00 Dose: 600 mg Documented by: Haloperidol (Haldol) 5 mg PO Q6H PRN PRN Reason: Agitation Last Admin: 07/31/19 15:18 Dose: 5 mg Documented by: Haloperidol Lactate (Haldol) 5 mg IM Q6H PRN PRN Reason: Agitation Last Admin: 07/30/19 16:01 Dose: 5 mg Documented by: Melatonin (Melatonin) 3 mg PO QHS [facility] Last Admin: 07/31/19 21:00 Dose: 3 mg Documented by: Metoprolol Succinate (Toprol Xl) 50 mg PO QDAY [facility] Last Admin: 07/31/19 11:00 Dose: 50 mg Documented by: Mirtazapine (Remeron) 30 mg PO QHS [facility] Last Admin: 07/31/19 21:01 Dose: 30 mg Documented by: Modafinil (Provigil) 100 mg PO QAM [facility] Last Admin: 07/31/19 10:46 Dose: 100 mg Documented by: Naproxen (Naprosyn) 375 mg PO BID [facility] Last Admin: 07/31/19 21:01 Dose: 375 mg Documented by: Olanzapine (Zyprexa Zydis) 10 mg PO TID PRN PRN Reason: Agitation Last Admin: 07/31/19 15:33 Dose: 10 mg Documented by: Olanzapine (Zyprexa Zydis) 5 mg PO TID [facility] Last Admin: 07/31/19 21:00 Dose: 5 mg Documented by: Venlafaxine HCl (Effexor Xr) 150 mg PO QDAY [facility] Last Admin: 07/31/19 10:48 Dose: 150 mg Documented by: Results - Results Labs/Vitals: Laboratory Last Values WBC 6.2 K/mm3 (4.5-11.0) 07/27/19 09:24 RBC 4.94 M/mm3 (3.65-5.03) 07/27/19 09:24 Hgb 14.8 gm/dl (11.8-15.2) 07/27/19 09:24 Hct 44.2 % (35.5-45.6) 07/27/19 09:24 MCV 90 fl (84-94) 07/27/19 09:24 MCH 30 pg (28-32) 07/27/19 09:24 MCHC 33 % (32-34) 07/27/19 09:24 RDW 15.8 % (13.2-15.2) H 07/27/19 09:24 Plt Count 158 K/mm3 (140-440) 07/27/19 09:24 Lymph % (Auto) 23.4 % (13.4-35.0) 07/27/19 09:24 [place] % (Auto) 10.1 % (0.0-7.3) H 07/27/19 09:24 Eos % (Auto) 0.1 % (0.0-4.3) 07/27/19 09:24 Baso % (Auto) 0.7 % (0.0-1.8) 07/27/19 09:24 Lymph # 1.5 K/mm3 (1.2-5.4) 07/27/19 09:24 Kane # 0.6 K/mm3 (0.0-0.8) 07/27/19 09:24 Eos # 0.0 K/mm3 (0.0-0.4) 07/27/19 09:24 Baso # 0.0 K/mm3 (0.0-0.1) 07/27/19 09:24 Seg Neutrophils % 65.7 % (40.0-70.0) 07/27/19 09:24 Seg Neutrophils # 4.1 K/mm3 (1.8-7.7) 07/27/19 09:24 Sodium 145 mmol/L (137-145) 07/27/19 09:24 Potassium 4.3 mmol/L (3.6-5.0) 07/27/19 09:24 Chloride 104.1 mmol/L (98-107) 07/27/19 09:24 Carbon Dioxide 25 mmol/L (22-30) 07/27/19 09:24 Anion Gap 20 mmol/L 07/27/19 09:24 BUN 35 mg/dL (9-20) H 07/27/19 09:24 Creatinine 1.1 mg/dL (0.8-1.5) 07/27/19 09:24 Estimated GFR > 60 ml/min 07/27/19 09:24 BUN/Creatinine Ratio 32 % 07/27/19 09:24 Glucose 98 mg/dL (75-100) 07/27/19 09:24 POC Glucose 106 (70-105) H 07/27/19 16:39 Hemoglobin A1c 5.5 % (4-6) 07/27/19 09:24 Calcium 9.5 mg/dL (8.4-10.2) 07/27/19 09:24 Total Bilirubin 0.40 mg/dL (0.1-1.2) 07/27/19 09:24 AST 29 units/L (5-40) 07/27/19 09:24 ALT 20 units/L (7-56) 07/27/19 09:24 Alkaline Phosphatase 83 units/L (35-129) 07/27/19 09:24 Total Protein 6.5 g/dL (6.3-8.2) 07/27/19 09:24 Albumin 4.2 g/dL (3.9-5) 07/27/19 09:24 Albumin/Globulin Ratio 1.8 % 07/27/19 09:24 Triglycerides 129 mg/dL (2-149) 07/27/19 09:24 Cholesterol 133 mg/dL (50-199) 07/27/19 09:24 LDL Cholesterol Direct 74 mg/dL (50-130) 07/27/19 09:24 HDL Cholesterol 43 mg/dL (40-59) 07/27/19 09:24 Cholesterol/HDL Ratio 3.09 % 07/27/19 09:24 TSH 3.070 mlU/mL (0.270-4.200) 07/27/19 09:24 Valproic Acid 67.4 ug/mL (50-100) 07/31/19 08:03 RPR Nonreactive (Nonreactive) 07/27/19 09:24 Last Vital Signs Temp 97.9 F 07/31/19 09:30 Pulse 104 H 07/31/19 11:00 Resp 16 07/31/19 09:30 BP 160/93 07/31/19 11:00 Pulse Ox 96 07/31/19 09:30
--- NOTE | 2019-08-01 09:56 | Progress Note ---
Subjective Date of service: 08/01/19 Principal diagnosis: Dementia, Schizoaffective disorder Subjective Comment: No new event. Pt continues to be impulsive and unpredictable. He is a/o to self and is able to follow simple directions. Serum Valproic acid level 67.4 MSE Orientation: person Affect: agitated Mood: congruent with affect Thought Process: Disorganized Perceptions: none Speech: paucity Concentration: unable to pay attention Motor activity: agitated Level of consciousness: alert Memory: Recent Impaired, Remote Impaired Interaction: hostile, uncooperative Objective - Criteria for Continued Treatment Criteria for Continued Treatment: Reducing Isolative Behaviors, Stablizing Level of Functioning, Improving Emotional/Socia - Objective Observation Participation Level: Minimal Reason(s) For Not Participating: Unable Assessment and Plan - Patient Problems (1) Major neurocognitive disorder due to Alzheimer's disease, with behavioral disturbance Current Visit: Yes Status: Acute (2) Schizoaffective disorder, bipolar type Current Visit: Yes Status: Acute Plan to address problem: Patient will be admitted for inpatient psychiatric evaluation, medication adjustment and close monitoring The patient's behavior, mood, sleep and appetite will be closely monitored. Patient will be enrolled in individual and group therapeutic sessions and encouraged to attend. Patient will be provided with a safe and structured environment. Patient's physical health needs will be addressed by the Hospitalist. Social Assessment will be completed and the Rope Making Machine Operator will work with patient and family to ensure a suitable and safe disposition Medication adjustment will be made as clinically indicated The patient agreed on the treatment plan, understood the risk, benefit, alternative treatment, potential consequence of no treatment, and gave informed consent. Medications and Allergies Allergies Allergy/AdvReac Type Severity Reaction Status Date / Time aripiprazole [From Abilify] Allergy Unknown Verified 07/26/19 23:01 diazepam [From Valium] Allergy Unknown Verified 07/26/19 23:01 lithium Allergy Unknown Verified 07/26/19 23:01 lorazepam [From Ativan] Allergy Unknown Verified 07/26/19 23:01 Home Medications Medication Instructions Recorded Confirmed Last Taken Type AtorvaSTATin [Lipitor] 40 mg PO QHS 07/27/19 07/28/19 Unknown History Divalproex Sprinkle [Depakote 500 mg PO Q8H 07/27/19 07/28/19 Unknown History Sprinkle] Metoprolol Xl [Metoprolol 50 mg PO DAILY 07/27/19 07/28/19 Unknown History SUCCINATE ER TAB] Mirtazapine [Remeron 30mg TAB] 30 mg PO QHS 07/27/19 07/28/19 Unknown History Modafinil [Provigil] 100 mg PO DAILY 07/27/19 07/28/19 Unknown History Naproxen [Naproxen DR] 375 mg PO BID 07/27/19 07/28/19 Unknown History OLANzapine [ZyPREXA] 5 mg PO TID 07/27/19 07/28/19 Unknown History Venlafaxine ER 150 mg PO DAILY 07/27/19 07/28/19 Unknown History dilTIAZem CD [Cardizem Cd] 120 mg PO DAILY 07/27/19 07/27/19 Unknown History OLANzapine ZYDIS [ZyPREXA Zydis] 10 mg PO TID PRN 07/28/19 07/28/19 Unknown History Active Meds: Active Medications Aspirin (Halfprin Ec) 81 mg PO QDAY [facility] Last Admin: 07/31/19 11:00 Dose: 81 mg Documented by: Atorvastatin Calcium (Lipitor) 40 mg PO QHS [facility] Last Admin: 07/31/19 21:01 Dose: 40 mg Documented by: Diltiazem HCl (Cardizem Cd) 120 mg PO QDAY [facility] Last Admin: 07/31/19 10:59 Dose: 120 mg Documented by: Diphenhydramine HCl (Benadryl) 50 mg IM Q6H PRN PRN Reason: Extrapyramidal Effects Last Admin: 07/30/19 10:30 Dose: 50 mg Documented by: Diphenhydramine HCl (Benadryl) 50 mg PO Q6H PRN PRN Reason: Extrapyramidal Effects Divalproex Sodium (Depakote Sprinkle) 500 mg PO Q8HR [facility] Last Admin: 08/01/19 05:49 Dose: 500 mg Documented by: Guaifenesin (Mucinex Er) 600 mg PO BID [facility] Last Admin: 07/31/19 21:00 Dose: 600 mg Documented by: Haloperidol (Haldol) 5 mg PO Q6H PRN PRN Reason: Agitation Last Admin: 07/31/19 15:18 Dose: 5 mg Documented by: Haloperidol Lactate (Haldol) 5 mg IM Q6H PRN PRN Reason: Agitation Last Admin: 07/30/19 16:01 Dose: 5 mg Documented by: Melatonin (Melatonin) 3 mg PO QHS [facility] Last Admin: 07/31/19 21:00 Dose: 3 mg Documented by: Metoprolol Succinate (Toprol Xl) 50 mg PO QDAY [facility] Last Admin: 07/31/19 11:00 Dose: 50 mg Documented by: Mirtazapine (Remeron) 30 mg PO QHS [facility] Last Admin: 07/31/19 21:01 Dose: 30 mg Documented by: Modafinil (Provigil) 100 mg PO QAM [facility] Last Admin: 07/31/19 10:46 Dose: 100 mg Documented by: Naproxen (Naprosyn) 375 mg PO BID [facility] Last Admin: 07/31/19 21:01 Dose: 375 mg Documented by: Olanzapine (Zyprexa Zydis) 10 mg PO TID PRN PRN Reason: Agitation Last Admin: 07/31/19 15:33 Dose: 10 mg Documented by: Olanzapine (Zyprexa Zydis) 5 mg PO TID [facility] Last Admin: 07/31/19 21:00 Dose: 5 mg Documented by: Venlafaxine HCl (Effexor Xr) 150 mg PO QDAY [facility] Last Admin: 07/31/19 10:48 Dose: 150 mg Documented by: Results - Results Labs/Vitals: Laboratory Last Values WBC 6.2 K/mm3 (4.5-11.0) 07/27/19 09:24 RBC 4.94 M/mm3 (3.65-5.03) 07/27/19 09:24 Hgb 14.8 gm/dl (11.8-15.2) 07/27/19 09:24 Hct 44.2 % (35.5-45.6) 07/27/19 09:24 MCV 90 fl (84-94) 07/27/19 09:24 MCH 30 pg (28-32) 07/27/19 09:24 MCHC 33 % (32-34) 07/27/19 09:24 RDW 15.8 % (13.2-15.2) H 07/27/19 09:24 Plt Count 158 K/mm3 (140-440) 07/27/19 09:24 Lymph % (Auto) 23.4 % (13.4-35.0) 07/27/19 09:24 Story % (Auto) 10.1 % (0.0-7.3) H 07/27/19 09:24 Eos % (Auto) 0.1 % (0.0-4.3) 07/27/19 09:24 Baso % (Auto) 0.7 % (0.0-1.8) 07/27/19 09:24 Lymph # 1.5 K/mm3 (1.2-5.4) 07/27/19 09:24 Story # 0.6 K/mm3 (0.0-0.8) 07/27/19 09:24 Eos # 0.0 K/mm3 (0.0-0.4) 07/27/19 09:24 Baso # 0.0 K/mm3 (0.0-0.1) 07/27/19 09:24 Seg Neutrophils % 65.7 % (40.0-70.0) 07/27/19 09:24 Seg Neutrophils # 4.1 K/mm3 (1.8-7.7) 07/27/19 09:24 Sodium 145 mmol/L (137-145) 07/27/19 09:24 Potassium 4.3 mmol/L (3.6-5.0) 07/27/19 09:24 Chloride 104.1 mmol/L (98-107) 07/27/19 09:24 Carbon Dioxide 25 mmol/L (22-30) 07/27/19 09:24 Anion Gap 20 mmol/L 07/27/19 09:24 BUN 35 mg/dL (9-20) H 07/27/19 09:24 Creatinine 1.1 mg/dL (0.8-1.5) 07/27/19 09:24 Estimated GFR > 60 ml/min 07/27/19 09:24 BUN/Creatinine Ratio 32 % 07/27/19 09:24 Glucose 98 mg/dL (75-100) 07/27/19 09:24 POC Glucose 106 (70-105) H 07/27/19 16:39 Hemoglobin A1c 5.5 % (4-6) 07/27/19 09:24 Calcium 9.5 mg/dL (8.4-10.2) 07/27/19 09:24 Total Bilirubin 0.40 mg/dL (0.1-1.2) 07/27/19 09:24 AST 29 units/L (5-40) 07/27/19 09:24 ALT 20 units/L (7-56) 07/27/19 09:24 Alkaline Phosphatase 83 units/L (35-129) 07/27/19 09:24 Total Protein 6.5 g/dL (6.3-8.2) 07/27/19 09:24 Albumin 4.2 g/dL (3.9-5) 07/27/19 09:24 Albumin/Globulin Ratio 1.8 % 07/27/19 09:24 Triglycerides 129 mg/dL (2-149) 07/27/19 09:24 Cholesterol 133 mg/dL (50-199) 07/27/19 09:24 LDL Cholesterol Direct 74 mg/dL (50-130) 07/27/19 09:24 HDL Cholesterol 43 mg/dL (40-59) 07/27/19 09:24 Cholesterol/HDL Ratio 3.09 % 07/27/19 09:24 TSH 3.070 mlU/mL (0.270-4.200) 07/27/19 09:24 Valproic Acid 67.4 ug/mL (50-100) 07/31/19 08:03 RPR Nonreactive (Nonreactive) 07/27/19 09:24 Last Vital Signs Temp 97.9 F 07/31/19 09:30 Pulse 104 H 07/31/19 11:00 Resp 16 07/31/19 09:30 BP 160/93 07/31/19 11:00 Pulse Ox 96 07/31/19 09:30
[2019-08-01] MEDS: EFFEXOR XR PO SCH (11:19)
[2019-08-01] MEDS: MUCINEX ER PO SCH ×2 (11:20→21:05)
[2019-08-01] MEDS: CARDIZEM CD PO SCH (11:26)
[2019-08-01] MEDS: HALFPRIN EC PO SCH (11:26)
[2019-08-01] MEDS: NAPROXEN PO SCH ×2 (11:27→21:04)
[2019-08-01] MEDS: PROVIGIL PO SCH (11:28)
[2019-08-01] MEDS: METOPROLOL XL PO SCH (15:06)
--- NOTE | 2019-08-01 15:32 | XRay Report ---
CHEST 1 VIEW INDICATION: Pre [facility] placement screening for TB. COMPARISON: None FINDINGS: Support devices: None. Heart: Within normal limits. Lungs/Pleura: The lungs are hyperinflated consistent with underlying emphysematous changes. No eviden ce for infiltrate, pleural effusion or pneumothorax. Additional findings: Surgical clips in the left axilla and left shoulder rotator cuff repair changes are noted, correlate with history. IMPRESSION: Hyperinflated lungs. No acute cardiopulmonary process. Signer Name: Bereket Awad Jr, MD Signed: 08/01/2019 3:27 PM Workstation Name: [id number]
[2019-08-01] MEDS: REMERON PO SCH (21:04)
[2019-08-01] MEDS: MELATONIN PO SCH (21:05)
[2019-08-02] MEDS: HALFPRIN EC PO SCH (09:45)
[2019-08-02] MEDS: NAPROXEN PO SCH ×2 (09:45→21:19)
[2019-08-02] MEDS: PROVIGIL PO SCH (09:45)
[2019-08-02] MEDS: MUCINEX ER PO SCH ×2 (09:46→21:19)
[2019-08-02] MEDS: CARDIZEM CD PO SCH (09:46)
[2019-08-02] MEDS: EFFEXOR XR PO SCH (09:47)
[2019-08-02] MEDS: METOPROLOL XL PO SCH (09:47)
[2019-08-02] MEDS: MELATONIN PO SCH (21:19)
[2019-08-03] MEDS: REMERON PO SCH ×2 (00:15→21:03)
--- NOTE | 2019-08-03 04:56 | Progress Note ---
Subjective Date of service: 08/02/19 Principal diagnosis: Dementia, Schizoaffective disorder Subjective Comment: No new event. Pt continues to be impulsive and unpredictable. He is a/o to self and is able to follow simple directions. Serum Valproic acid level 67.4 MSE Orientation: person Affect: agitated Mood: congruent with affect Thought Process: Disorganized Perceptions: none Speech: paucity Concentration: unable to pay attention Motor activity: agitated Level of consciousness: alert Memory: Recent Impaired, Remote Impaired Interaction: hostile, uncooperative Objective - Criteria for Continued Treatment Criteria for Continued Treatment: Improving Level of Functioning, Stablizing Level of Functioning, Improving Emotional/Socia - Objective Observation Participation Level: Minimal Reason(s) For Not Participating: Unable Assessment and Plan - Patient Problems (1) Major neurocognitive disorder due to Alzheimer's disease, with behavioral disturbance Current Visit: Yes Status: Acute (2) Schizoaffective disorder, bipolar type Current Visit: Yes Status: Acute Plan to address problem: Patient will be admitted for inpatient psychiatric evaluation, medication adjustment and close monitoring The patient's behavior, mood, sleep and appetite will be closely monitored. Patient will be enrolled in individual and group therapeutic sessions and encouraged to attend. Patient will be provided with a safe and structured environment. Patient's physical health needs will be addressed by the Hospitalist. Social Assessment will be completed and the Agronomy Supervisor will work with patient and family to ensure a suitable and safe disposition Medication adjustment will be made as clinically indicated The patient agreed on the treatment plan, understood the risk, benefit, alternative treatment, potential consequence of no treatment, and gave informed consent. Medications and Allergies Allergies Allergy/AdvReac Type Severity Reaction Status Date / Time aripiprazole [From Abilify] Allergy Unknown Verified 07/26/19 23:01 diazepam [From Valium] Allergy Unknown Verified 07/26/19 23:01 lithium Allergy Unknown Verified 07/26/19 23:01 lorazepam [From Ativan] Allergy Unknown Verified 07/26/19 23:01 Home Medications Medication Instructions Recorded Confirmed Last Taken Type AtorvaSTATin [Lipitor] 40 mg PO QHS 07/27/19 07/28/19 Unknown History Divalproex Sprinkle [Depakote 500 mg PO Q8H 07/27/19 07/28/19 Unknown History Sprinkle] Metoprolol Xl [Metoprolol 50 mg PO DAILY 07/27/19 07/28/19 Unknown History SUCCINATE ER TAB] Mirtazapine [Remeron 30mg TAB] 30 mg PO QHS 07/27/19 07/28/19 Unknown History Modafinil [Provigil] 100 mg PO DAILY 07/27/19 07/28/19 Unknown History Naproxen [Naproxen DR] 375 mg PO BID 07/27/19 07/28/19 Unknown History OLANzapine [ZyPREXA] 5 mg PO TID 07/27/19 07/28/19 Unknown History Venlafaxine ER 150 mg PO DAILY 07/27/19 07/28/19 Unknown History dilTIAZem CD [Cardizem Cd] 120 mg PO DAILY 07/27/19 07/27/19 Unknown History OLANzapine ZYDIS [ZyPREXA Zydis] 10 mg PO TID PRN 07/28/19 07/28/19 Unknown History Active Meds: Active Medications Aspirin (Halfprin Ec) 81 mg PO QDAY [facility] Last Admin: 08/02/19 09:45 Dose: 81 mg Documented by: Atorvastatin Calcium (Lipitor) 40 mg PO QHS [facility] Last Admin: 08/02/19 21:20 Dose: 40 mg Documented by: Diltiazem HCl (Cardizem Cd) 120 mg PO QDAY [facility] Last Admin: 08/02/19 09:46 Dose: 120 mg Documented by: Diphenhydramine HCl (Benadryl) 50 mg IM Q6H PRN PRN Reason: Extrapyramidal Effects Last Admin: 07/30/19 10:30 Dose: 50 mg Documented by: Diphenhydramine HCl (Benadryl) 50 mg PO Q6H PRN PRN Reason: Extrapyramidal Effects Divalproex Sodium (Depakote Sprinkle) 500 mg PO Q8HR [facility] Last Admin: 08/02/19 21:20 Dose: 500 mg Documented by: Guaifenesin (Mucinex Er) 600 mg PO BID [facility] Last Admin: 08/02/19 21:19 Dose: 600 mg Documented by: Haloperidol (Haldol) 5 mg PO Q6H PRN PRN Reason: Agitation Last Admin: 07/31/19 15:18 Dose: 5 mg Documented by: Haloperidol Lactate (Haldol) 5 mg IM Q6H PRN PRN Reason: Agitation Last Admin: 07/30/19 16:01 Dose: 5 mg Documented by: Melatonin (Melatonin) 3 mg PO QHS [facility] Last Admin: 08/02/19 21:19 Dose: 3 mg Documented by: Metoprolol Succinate (Toprol Xl) 50 mg PO QDAY [facility] Last Admin: 08/02/19 09:47 Dose: 50 mg Documented by: Mirtazapine (Remeron) 30 mg PO QHS [facility] Last Admin: 08/03/19 00:15 Dose: 30 mg Documented by: Modafinil (Provigil) 100 mg PO QAM [facility] Last Admin: 08/02/19 09:45 Dose: 100 mg Documented by: Naproxen (Naprosyn) 375 mg PO BID [facility] Last Admin: 08/02/19 21:19 Dose: 375 mg Documented by: Olanzapine (Zyprexa Zydis) 10 mg PO TID PRN PRN Reason: Agitation Last Admin: 07/31/19 15:33 Dose: 10 mg Documented by: Olanzapine (Zyprexa Zydis) 5 mg PO TID [facility] Last Admin: 08/02/19 21:20 Dose: 5 mg Documented by: Venlafaxine HCl (Effexor Xr) 150 mg PO QDAY [facility] Last Admin: 08/02/19 09:47 Dose: 150 mg Documented by: Results - Results Labs/Vitals: Laboratory Last Values WBC 6.2 K/mm3 (4.5-11.0) 07/27/19 09:24 RBC 4.94 M/mm3 (3.65-5.03) 07/27/19 09:24 Hgb 14.8 gm/dl (11.8-15.2) 07/27/19 09:24 Hct 44.2 % (35.5-45.6) 07/27/19 09:24 MCV 90 fl (84-94) 07/27/19 09:24 MCH 30 pg (28-32) 07/27/19 09:24 MCHC 33 % (32-34) 07/27/19 09:24 RDW 15.8 % (13.2-15.2) H 07/27/19 09:24 Plt Count 158 K/mm3 (140-440) 07/27/19 09:24 Lymph % (Auto) 23.4 % (13.4-35.0) 07/27/19 09:24 [place] % (Auto) 10.1 % (0.0-7.3) H 07/27/19 09:24 Eos % (Auto) 0.1 % (0.0-4.3) 07/27/19 09:24 Baso % (Auto) 0.7 % (0.0-1.8) 07/27/19 09:24 Lymph # 1.5 K/mm3 (1.2-5.4) 07/27/19 09:24 [place] # 0.6 K/mm3 (0.0-0.8) 07/27/19 09:24 Eos # 0.0 K/mm3 (0.0-0.4) 07/27/19 09:24 Baso # 0.0 K/mm3 (0.0-0.1) 07/27/19 09:24 Seg Neutrophils % 65.7 % (40.0-70.0) 07/27/19 09:24 Seg Neutrophils # 4.1 K/mm3 (1.8-7.7) 07/27/19 09:24 Sodium 145 mmol/L (137-145) 07/27/19 09:24 Potassium 4.3 mmol/L (3.6-5.0) 07/27/19 09:24 Chloride 104.1 mmol/L (98-107) 07/27/19 09:24 Carbon Dioxide 25 mmol/L (22-30) 07/27/19 09:24 Anion Gap 20 mmol/L 07/27/19 09:24 BUN 35 mg/dL (9-20) H 07/27/19 09:24 Creatinine 1.1 mg/dL (0.8-1.5) 07/27/19 09:24 Estimated GFR > 60 ml/min 07/27/19 09:24 BUN/Creatinine Ratio 32 % 07/27/19 09:24 Glucose 98 mg/dL (75-100) 07/27/19 09:24 POC Glucose 106 (70-105) H 07/27/19 16:39 Hemoglobin A1c 5.5 % (4-6) 07/27/19 09:24 Calcium 9.5 mg/dL (8.4-10.2) 07/27/19 09:24 Total Bilirubin 0.40 mg/dL (0.1-1.2) 07/27/19 09:24 AST 29 units/L (5-40) 07/27/19 09:24 ALT 20 units/L (7-56) 07/27/19 09:24 Alkaline Phosphatase 83 units/L (35-129) 07/27/19 09:24 Total Protein 6.5 g/dL (6.3-8.2) 07/27/19 09:24 Albumin 4.2 g/dL (3.9-5) 07/27/19 09:24 Albumin/Globulin Ratio 1.8 % 07/27/19 09:24 Triglycerides 129 mg/dL (2-149) 07/27/19 09:24 Cholesterol 133 mg/dL (50-199) 07/27/19 09:24 LDL Cholesterol Direct 74 mg/dL (50-130) 07/27/19 09:24 HDL Cholesterol 43 mg/dL (40-59) 07/27/19 09:24 Cholesterol/HDL Ratio 3.09 % 07/27/19 09:24 TSH 3.070 mlU/mL (0.270-4.200) 07/27/19 09:24 Valproic Acid 67.4 ug/mL (50-100) 07/31/19 08:03 RPR Nonreactive (Nonreactive) 07/27/19 09:24 Last Vital Signs Temp 97.3 F L 08/02/19 18:54 Pulse 69 08/02/19 18:54 Resp 18 08/02/19 18:54 BP 111/54 08/02/19 18:54 Pulse Ox 97 08/02/19 18:54
[2019-08-03] MEDS: MUCINEX ER PO SCH ×2 (09:40→21:02)
[2019-08-03] MEDS: EFFEXOR XR PO SCH (09:40)
[2019-08-03] MEDS: CARDIZEM CD PO SCH (09:40)
[2019-08-03] MEDS: HALFPRIN EC PO SCH (09:41)
[2019-08-03] MEDS: PROVIGIL PO SCH (09:41)
[2019-08-03] MEDS: METOPROLOL XL PO SCH (09:41)
[2019-08-03] MEDS: NAPROXEN PO SCH ×2 (09:42→21:01)
--- NOTE | 2019-08-03 19:59 | Progress Note ---
Subjective Date of service: 08/03/19 Principal diagnosis: Dementia, Schizoaffective disorder Subjective Comment: Patient is improving. Nursing staff reports that patient is alert and oriented to person. patient is restless at times and requires redirection. patient ambulates with a limp and unsteady gait. patient was cooperative with morning ADL. patient thoughts are disorganized and patient is disoriented. no aggression this shift. currently medication compliant, tolerating crushed. MSE Orientation: person Affect: normal Mood: congruent with affect Thought Process: Disorganized Perceptions: none Speech: paucity Concentration: unable to pay attention Motor activity: agitated Level of consciousness: alert Memory: Recent Impaired, Remote Impaired Interaction: cooperative Objective - Criteria for Continued Treatment Criteria for Continued Treatment: Stablizing Level of Functioning, Improving Emotional/Socia - Objective Observation Participation Level: Minimal Reason(s) For Not Participating: Unable Assessment and Plan - Patient Problems (1) Major neurocognitive disorder due to Alzheimer's disease, with behavioral disturbance Current Visit: Yes Status: Acute (2) Schizoaffective disorder, bipolar type Current Visit: Yes Status: Acute Plan to address problem: Patient will be admitted for inpatient psychiatric evaluation, medication adjustment and close monitoring The patient's behavior, mood, sleep and appetite will be closely monitored. Patient will be enrolled in individual and group therapeutic sessions and encouraged to attend. Patient will be provided with a safe and structured environment. Patient's physical health needs will be addressed by the Hospitalist. Social Assessment will be completed and the Sql Ssrs Ssis Developer will work with patient and family to ensure a suitable and safe disposition Medication adjustment will be made as clinically indicated The patient agreed on the treatment plan, understood the risk, benefit, alternative treatment, potential consequence of no treatment, and gave informed consent. Medications and Allergies Allergies Allergy/AdvReac Type Severity Reaction Status Date / Time aripiprazole [From Abilify] Allergy Unknown Verified 07/26/19 23:01 diazepam [From Valium] Allergy Unknown Verified 07/26/19 23:01 lithium Allergy Unknown Verified 07/26/19 23:01 lorazepam [From Ativan] Allergy Unknown Verified 07/26/19 23:01 Home Medications Medication Instructions Recorded Confirmed Last Taken Type AtorvaSTATin [Lipitor] 40 mg PO QHS 07/27/19 07/28/19 Unknown History Divalproex Sprinkle [Depakote 500 mg PO Q8H 07/27/19 07/28/19 Unknown History Sprinkle] Metoprolol Xl [Metoprolol 50 mg PO DAILY 07/27/19 07/28/19 Unknown History SUCCINATE ER TAB] Mirtazapine [Remeron 30mg TAB] 30 mg PO QHS 07/27/19 07/28/19 Unknown History Modafinil [Provigil] 100 mg PO DAILY 07/27/19 07/28/19 Unknown History Naproxen [Naproxen DR] 375 mg PO BID 07/27/19 07/28/19 Unknown History OLANzapine [ZyPREXA] 5 mg PO TID 07/27/19 07/28/19 Unknown History Venlafaxine ER 150 mg PO DAILY 07/27/19 07/28/19 Unknown History dilTIAZem CD [Cardizem Cd] 120 mg PO DAILY 07/27/19 07/27/19 Unknown History OLANzapine ZYDIS [ZyPREXA Zydis] 10 mg PO TID PRN 07/28/19 07/28/19 Unknown History Active Meds: Active Medications Aspirin (Halfprin Ec) 81 mg PO QDAY [facility] Last Admin: 08/03/19 09:41 Dose: 81 mg Documented by: Atorvastatin Calcium (Lipitor) 40 mg PO QHS [facility] Last Admin: 08/02/19 21:20 Dose: 40 mg Documented by: Diltiazem HCl (Cardizem Cd) 120 mg PO QDAY [facility] Last Admin: 08/03/19 09:40 Dose: 120 mg Documented by: Diphenhydramine HCl (Benadryl) 50 mg IM Q6H PRN PRN Reason: Extrapyramidal Effects Last Admin: 07/30/19 10:30 Dose: 50 mg Documented by: Diphenhydramine HCl (Benadryl) 50 mg PO Q6H PRN PRN Reason: Extrapyramidal Effects Divalproex Sodium (Depakote Sprinkle) 500 mg PO Q8HR [facility] Last Admin: 08/03/19 14:52 Dose: 500 mg Documented by: Guaifenesin (Mucinex Er) 600 mg PO BID [facility] Last Admin: 08/03/19 09:40 Dose: 600 mg Documented by: Haloperidol (Haldol) 5 mg PO Q6H PRN PRN Reason: Agitation Last Admin: 07/31/19 15:18 Dose: 5 mg Documented by: Haloperidol Lactate (Haldol) 5 mg IM Q6H PRN PRN Reason: Agitation Last Admin: 07/30/19 16:01 Dose: 5 mg Documented by: Melatonin (Melatonin) 3 mg PO QHS [facility] Last Admin: 08/02/19 21:19 Dose: 3 mg Documented by: Metoprolol Succinate (Toprol Xl) 50 mg PO QDAY [facility] Last Admin: 08/03/19 09:41 Dose: 50 mg Documented by: Mirtazapine (Remeron) 30 mg PO QHS [facility] Last Admin: 08/03/19 00:15 Dose: 30 mg Documented by: Modafinil (Provigil) 100 mg PO QAM [facility] Last Admin: 08/03/19 09:41 Dose: 100 mg Documented by: Naproxen (Naprosyn) 375 mg PO BID [facility] Last Admin: 08/03/19 09:42 Dose: 375 mg Documented by: Olanzapine (Zyprexa Zydis) 10 mg PO TID PRN PRN Reason: Agitation Last Admin: 07/31/19 15:33 Dose: 10 mg Documented by: Olanzapine (Zyprexa Zydis) 5 mg PO TID [facility] Last Admin: 08/03/19 14:53 Dose: 5 mg Documented by: Venlafaxine HCl (Effexor Xr) 150 mg PO QDAY [facility] Last Admin: 08/03/19 09:40 Dose: 150 mg Documented by: Results - Results Labs/Vitals: Laboratory Last Values WBC 6.2 K/mm3 (4.5-11.0) 07/27/19 09:24 RBC 4.94 M/mm3 (3.65-5.03) 07/27/19 09:24 Hgb 14.8 gm/dl (11.8-15.2) 07/27/19 09:24 Hct 44.2 % (35.5-45.6) 07/27/19 09:24 MCV 90 fl (84-94) 07/27/19 09:24 MCH 30 pg (28-32) 07/27/19 09:24 MCHC 33 % (32-34) 07/27/19 09:24 RDW 15.8 % (13.2-15.2) H 07/27/19 09:24 Plt Count 158 K/mm3 (140-440) 07/27/19 09:24 Lymph % (Auto) 23.4 % (13.4-35.0) 07/27/19 09:24 [place] % (Auto) 10.1 % (0.0-7.3) H 07/27/19 09:24 Eos % (Auto) 0.1 % (0.0-4.3) 07/27/19 09:24 Baso % (Auto) 0.7 % (0.0-1.8) 07/27/19 09:24 Lymph # 1.5 K/mm3 (1.2-5.4) 07/27/19 09:24 [place] # 0.6 K/mm3 (0.0-0.8) 07/27/19 09:24 Eos # 0.0 K/mm3 (0.0-0.4) 07/27/19 09:24 Baso # 0.0 K/mm3 (0.0-0.1) 07/27/19 09:24 Seg Neutrophils % 65.7 % (40.0-70.0) 07/27/19 09:24 Seg Neutrophils # 4.1 K/mm3 (1.8-7.7) 07/27/19 09:24 Sodium 145 mmol/L (137-145) 07/27/19 09:24 Potassium 4.3 mmol/L (3.6-5.0) 07/27/19 09:24 Chloride 104.1 mmol/L (98-107) 07/27/19 09:24 Carbon Dioxide 25 mmol/L (22-30) 07/27/19 09:24 Anion Gap 20 mmol/L 07/27/19 09:24 BUN 35 mg/dL (9-20) H 07/27/19 09:24 Creatinine 1.1 mg/dL (0.8-1.5) 07/27/19 09:24 Estimated GFR > 60 ml/min 07/27/19 09:24 BUN/Creatinine Ratio 32 % 07/27/19 09:24 Glucose 98 mg/dL (75-100) 07/27/19 09:24 POC Glucose 106 (70-105) H 07/27/19 16:39 Hemoglobin A1c 5.5 % (4-6) 07/27/19 09:24 Calcium 9.5 mg/dL (8.4-10.2) 07/27/19 09:24 Total Bilirubin 0.40 mg/dL (0.1-1.2) 07/27/19 09:24 AST 29 units/L (5-40) 07/27/19 09:24 ALT 20 units/L (7-56) 07/27/19 09:24 Alkaline Phosphatase 83 units/L (35-129) 07/27/19 09:24 Total Protein 6.5 g/dL (6.3-8.2) 07/27/19 09:24 Albumin 4.2 g/dL (3.9-5) 07/27/19 09:24 Albumin/Globulin Ratio 1.8 % 07/27/19 09:24 Triglycerides 129 mg/dL (2-149) 07/27/19 09:24 Cholesterol 133 mg/dL (50-199) 07/27/19 09:24 LDL Cholesterol Direct 74 mg/dL (50-130) 07/27/19 09:24 HDL Cholesterol 43 mg/dL (40-59) 07/27/19 09:24 Cholesterol/HDL Ratio 3.09 % 07/27/19 09:24 TSH 3.070 mlU/mL (0.270-4.200) 07/27/19 09:24 Valproic Acid 67.4 ug/mL (50-100) 07/31/19 08:03 RPR Nonreactive (Nonreactive) 07/27/19 09:24 Last Vital Signs Temp 97.3 F L 08/02/19 18:54 Pulse 84 08/03/19 10:00 Resp 16 08/03/19 09:15 BP 140/67 08/03/19 10:00 Pulse Ox 100 08/03/19 09:15
[2019-08-03] MEDS: MELATONIN PO SCH (21:02)
--- NOTE | 2019-08-04 07:36 | Progress Note ---
Subjective Date of service: 08/04/19 Principal diagnosis: Dementia, Schizoaffective disorder Subjective Comment: Patient is improving. Nursing staff reports that patient is alert and oriented to person. patient is restless at times and requires redirection. patient ambulates with a limp and unsteady gait. patient was cooperative with morning ADL. patient thoughts are disorganized and patient is disoriented. no aggression this shift. currently medication compliant, tolerating crushed. Pt is currently sleeping and did not attend meeting with physician. -04 Aug 2019 Nursing note states, patient is alert and oriented to self, with an unsteady gait. Pt slept for 9 hours during the night and is compliant with medications when crushed. Incontinent of bowel and bladder. Plan to D/C pt 05 Aug 2019. MSE Orientation: person Affect: normal Mood: congruent with affect Thought Process: Disorganized Perceptions: none Speech: paucity Concentration: unable to pay attention Motor activity: agitated Level of consciousness: alert Memory: Recent Impaired, Remote Impaired Interaction: cooperative Objective - Objective Observation Participation Level: None Reason(s) For Not Participating: Sleeping Assessment and Plan - Patient Problems (1) Major neurocognitive disorder due to Alzheimer's disease, with behavioral disturbance Current Visit: Yes Status: Acute (2) Schizoaffective disorder, bipolar type Current Visit: Yes Status: Acute Medications and Allergies Allergies Allergy/AdvReac Type Severity Reaction Status Date / Time aripiprazole [From Abilify] Allergy Unknown Verified 07/26/19 23:01 diazepam [From Valium] Allergy Unknown Verified 07/26/19 23:01 lithium Allergy Unknown Verified 07/26/19 23:01 lorazepam [From Ativan] Allergy Unknown Verified 07/26/19 23:01 Home Medications Medication Instructions Recorded Confirmed Last Taken Type AtorvaSTATin [Lipitor] 40 mg PO QHS 07/27/19 07/28/19 Unknown History Divalproex Sprinkle [Depakote 500 mg PO Q8H 07/27/19 07/28/19 Unknown History Sprinkle] Metoprolol Xl [Metoprolol 50 mg PO DAILY 07/27/19 07/28/19 Unknown History SUCCINATE ER TAB] Mirtazapine [Remeron 30mg TAB] 30 mg PO QHS 07/27/19 07/28/19 Unknown History Modafinil [Provigil] 100 mg PO DAILY 07/27/19 07/28/19 Unknown History Naproxen [Naproxen DR] 375 mg PO BID 07/27/19 07/28/19 Unknown History OLANzapine [ZyPREXA] 5 mg PO TID 07/27/19 07/28/19 Unknown History Venlafaxine ER 150 mg PO DAILY 07/27/19 07/28/19 Unknown History dilTIAZem CD [Cardizem Cd] 120 mg PO DAILY 07/27/19 07/27/19 Unknown History OLANzapine ZYDIS [ZyPREXA Zydis] 10 mg PO TID PRN 07/28/19 07/28/19 Unknown History Active Meds: Active Medications Aspirin (Halfprin Ec) 81 mg PO QDAY [facility] Last Admin: 08/03/19 09:41 Dose: 81 mg Documented by: Atorvastatin Calcium (Lipitor) 40 mg PO QHS [facility] Last Admin: 08/03/19 21:02 Dose: 40 mg Documented by: Diltiazem HCl (Cardizem Cd) 120 mg PO QDAY [facility] Last Admin: 08/03/19 09:40 Dose: 120 mg Documented by: Diphenhydramine HCl (Benadryl) 50 mg IM Q6H PRN PRN Reason: Extrapyramidal Effects Last Admin: 07/30/19 10:30 Dose: 50 mg Documented by: Diphenhydramine HCl (Benadryl) 50 mg PO Q6H PRN PRN Reason: Extrapyramidal Effects Divalproex Sodium (Depakote Sprinkle) 500 mg PO Q8HR [facility] Last Admin: 08/04/19 06:13 Dose: 500 mg Documented by: Guaifenesin (Mucinex Er) 600 mg PO BID [facility] Last Admin: 08/03/19 21:02 Dose: 600 mg Documented by: Haloperidol (Haldol) 5 mg PO Q6H PRN PRN Reason: Agitation Last Admin: 07/31/19 15:18 Dose: 5 mg Documented by: Haloperidol Lactate (Haldol) 5 mg IM Q6H PRN PRN Reason: Agitation Last Admin: 07/30/19 16:01 Dose: 5 mg Documented by: Melatonin (Melatonin) 3 mg PO QHS [facility] Last Admin: 08/03/19 21:02 Dose: 3 mg Documented by: Metoprolol Succinate (Toprol Xl) 50 mg PO QDAY [facility] Last Admin: 08/03/19 09:41 Dose: 50 mg Documented by: Mirtazapine (Remeron) 30 mg PO QHS [facility] Last Admin: 08/03/19 21:03 Dose: 30 mg Documented by: Modafinil (Provigil) 100 mg PO QAM [facility] Last Admin: 08/03/19 09:41 Dose: 100 mg Documented by: Naproxen (Naprosyn) 375 mg PO BID [facility] Last Admin: 08/03/19 21:01 Dose: 375 mg Documented by: Olanzapine (Zyprexa Zydis) 10 mg PO TID PRN PRN Reason: Agitation Last Admin: 07/31/19 15:33 Dose: 10 mg Documented by: Olanzapine (Zyprexa Zydis) 5 mg PO TID [facility] Last Admin: 08/03/19 20:01 Dose: 5 mg Documented by: Venlafaxine HCl (Effexor Xr) 150 mg PO QDAY [facility] Last Admin: 08/03/19 09:40 Dose: 150 mg Documented by: Results - Results Labs/Vitals: Laboratory Last Values WBC 6.2 K/mm3 (4.5-11.0) 07/27/19 09:24 RBC 4.94 M/mm3 (3.65-5.03) 07/27/19 09:24 Hgb 14.8 gm/dl (11.8-15.2) 07/27/19 09:24 Hct 44.2 % (35.5-45.6) 07/27/19 09:24 MCV 90 fl (84-94) 07/27/19 09:24 MCH 30 pg (28-32) 07/27/19 09:24 MCHC 33 % (32-34) 07/27/19 09:24 RDW 15.8 % (13.2-15.2) H 07/27/19 09:24 Plt Count 158 K/mm3 (140-440) 07/27/19 09:24 Lymph % (Auto) 23.4 % (13.4-35.0) 07/27/19 09:24 [place] % (Auto) 10.1 % (0.0-7.3) H 07/27/19 09:24 Eos % (Auto) 0.1 % (0.0-4.3) 07/27/19 09:24 Baso % (Auto) 0.7 % (0.0-1.8) 07/27/19 09:24 Lymph # 1.5 K/mm3 (1.2-5.4) 07/27/19 09:24 [place] # 0.6 K/mm3 (0.0-0.8) 07/27/19 09:24 Eos # 0.0 K/mm3 (0.0-0.4) 07/27/19 09:24 Baso # 0.0 K/mm3 (0.0-0.1) 07/27/19 09:24 Seg Neutrophils % 65.7 % (40.0-70.0) 07/27/19 09:24 Seg Neutrophils # 4.1 K/mm3 (1.8-7.7) 07/27/19 09:24 Sodium 145 mmol/L (137-145) 07/27/19 09:24 Potassium 4.3 mmol/L (3.6-5.0) 07/27/19 09:24 Chloride 104.1 mmol/L (98-107) 07/27/19 09:24 Carbon Dioxide 25 mmol/L (22-30) 07/27/19 09:24 Anion Gap 20 mmol/L 07/27/19 09:24 BUN 35 mg/dL (9-20) H 07/27/19 09:24 Creatinine 1.1 mg/dL (0.8-1.5) 07/27/19 09:24 Estimated GFR > 60 ml/min 07/27/19 09:24 BUN/Creatinine Ratio 32 % 07/27/19 09:24 Glucose 98 mg/dL (75-100) 07/27/19 09:24 POC Glucose 106 (70-105) H 07/27/19 16:39 Hemoglobin A1c 5.5 % (4-6) 07/27/19 09:24 Calcium 9.5 mg/dL (8.4-10.2) 07/27/19 09:24 Total Bilirubin 0.40 mg/dL (0.1-1.2) 07/27/19 09:24 AST 29 units/L (5-40) 07/27/19 09:24 ALT 20 units/L (7-56) 07/27/19 09:24 Alkaline Phosphatase 83 units/L (35-129) 07/27/19 09:24 Total Protein 6.5 g/dL (6.3-8.2) 07/27/19 09:24 Albumin 4.2 g/dL (3.9-5) 07/27/19 09:24 Albumin/Globulin Ratio 1.8 % 07/27/19 09:24 Triglycerides 129 mg/dL (2-149) 07/27/19 09:24 Cholesterol 133 mg/dL (50-199) 07/27/19 09:24 LDL Cholesterol Direct 74 mg/dL (50-130) 07/27/19 09:24 HDL Cholesterol 43 mg/dL (40-59) 07/27/19 09:24 Cholesterol/HDL Ratio 3.09 % 07/27/19 09:24 TSH 3.070 mlU/mL (0.270-4.200) 07/27/19 09:24 Valproic Acid 67.4 ug/mL (50-100) 07/31/19 08:03 RPR Nonreactive (Nonreactive) 07/27/19 09:24 Last Vital Signs Temp 97.5 F L 08/03/19 22:00 Pulse 75 08/03/19 22:00 Resp 18 08/03/19 22:00 BP 136/78 08/03/19 22:00 Pulse Ox 97 08/03/19 22:00
[2019-08-04] MEDS: METOPROLOL XL PO SCH (10:49)
[2019-08-04] MEDS: CARDIZEM CD PO SCH (10:51)
[2019-08-04] MEDS: EFFEXOR XR PO SCH (10:52)
--- NOTE | 2019-08-04 10:52 | XRay Report ---
CHEST 1 VIEW INDICATION: Pre [facility] placement screening for TB. COMPARISON: 08/01/2019 FINDINGS: Support devices: None. Heart: Within normal limits. Pulmonary vasculature: Normal. Lungs/Pleura: Hyperinflated lungs. No airspace disease or pleural effusion. Additional findings: Surgical clips in the left axilla and chest wall. IMPRESSION: 1. No acute findings. 2. No signs of acute or chronic TB. Signer Name: Antione Monsalve MD Signed: 08/04/2019 10:48 AM Workstation Name: [id number]
[2019-08-04] MEDS: NAPROXEN PO SCH ×2 (10:53→22:18)
[2019-08-04] MEDS: MUCINEX ER PO SCH ×2 (11:00→22:17)
[2019-08-04] MEDS: PROVIGIL PO SCH (11:00)
[2019-08-04] MEDS: HALFPRIN EC PO SCH (11:00)
[2019-08-04] MEDS: MELATONIN PO SCH (22:17)
[2019-08-04] MEDS: REMERON PO SCH (22:17)
--- NOTE | 2019-08-05 10:11 | Discharge Summary ---
Providers - Providers Date of Admission: 07/26/19 23:04 Date of discharge: 08/05/19 Attending physician: SUSAN BENNETT MD 07/26/19 23:31 Consult to Dietitian/Nutrition [CONS] Routine Physician Instructions: Reason For Exam: Reason for Consult: HTN, Kidney Dz Consult to Physician [CONS] Routine Comment: Consulting Provider: YOUNG MORSE Physician Instructions: Reason For Exam: H & P for New Admission Primary care physician: SUSAN BENNETT MD Hospitalization Reason for admission: Danger to others, Unable to care for self Condition: Stable Hospital course: The patient was provided inpatient psychiatric treatment with safe and supportive environment, group therapy, individual counseling, psychiatric medication, medication adjustment, adverse effect monitor, medical evaluation, medical treatment, social service assessment, family/social support meeting, placement assessment and psycho-education. The patients mood, anxiety, thoughts, stress management skill, cognition, impulse/anger control, motivation, understanding of disease, compliance to treatment and appreciation on family/social support are improved and stabilized. At the time of discharge, the patient had no suicidal ideas, no homicidal ideas, no aggressive thoughts, no endangering behavior and no debilitating adverse effects. Disposition: DC/[place]-[facility] Allergies/Adverse Reactions: Allergies aripiprazole [From Abilify] Allergy (Verified 07/26/19 23:01) Unknown diazepam [From Valium] Allergy (Verified 07/26/19 23:01) Unknown lithium Allergy (Verified 07/26/19 23:01) Unknown lorazepam [From Ativan] Allergy (Verified 07/26/19 23:01) Unknown Vital Signs: Last Vital Signs Temp 98.0 F 08/04/19 21:38 Pulse 68 08/04/19 21:38 Resp 18 08/04/19 22:18 BP 141/79 08/04/19 21:38 Pulse Ox 100 08/04/19 21:38 Last Lab: Laboratory Last Values WBC 6.2 K/mm3 (4.5-11.0) 07/27/19 09:24 RBC 4.94 M/mm3 (3.65-5.03) 07/27/19 09:24 Hgb 14.8 gm/dl (11.8-15.2) 07/27/19 09:24 Hct 44.2 % (35.5-45.6) 07/27/19 09:24 MCV 90 fl (84-94) 07/27/19 09:24 MCH 30 pg (28-32) 07/27/19 09:24 MCHC 33 % (32-34) 07/27/19 09:24 RDW 15.8 % (13.2-15.2) H 07/27/19 09:24 Plt Count 158 K/mm3 (140-440) 07/27/19 09:24 Lymph % (Auto) 23.4 % (13.4-35.0) 07/27/19 09:24 Moore % (Auto) 10.1 % (0.0-7.3) H 07/27/19 09:24 Eos % (Auto) 0.1 % (0.0-4.3) 07/27/19 09:24 Baso % (Auto) 0.7 % (0.0-1.8) 07/27/19 09:24 Lymph # 1.5 K/mm3 (1.2-5.4) 07/27/19 09:24 Moore # 0.6 K/mm3 (0.0-0.8) 07/27/19 09:24 Eos # 0.0 K/mm3 (0.0-0.4) 07/27/19 09:24 Baso # 0.0 K/mm3 (0.0-0.1) 07/27/19 09:24 Seg Neutrophils % 65.7 % (40.0-70.0) 07/27/19 09:24 Seg Neutrophils # 4.1 K/mm3 (1.8-7.7) 07/27/19 09:24 Sodium 145 mmol/L (137-145) 07/27/19 09:24 Potassium 4.3 mmol/L (3.6-5.0) 07/27/19 09:24 Chloride 104.1 mmol/L (98-107) 07/27/19 09:24 Carbon Dioxide 25 mmol/L (22-30) 07/27/19 09:24 Anion Gap 20 mmol/L 07/27/19 09:24 BUN 35 mg/dL (9-20) H 07/27/19 09:24 Creatinine 1.1 mg/dL (0.8-1.5) 07/27/19 09:24 Estimated GFR > 60 ml/min 07/27/19 09:24 BUN/Creatinine Ratio 32 % 07/27/19 09:24 Glucose 98 mg/dL (75-100) 07/27/19 09:24 POC Glucose 106 (70-105) H 07/27/19 16:39 Hemoglobin A1c 5.5 % (4-6) 07/27/19 09:24 Calcium 9.5 mg/dL (8.4-10.2) 07/27/19 09:24 Total Bilirubin 0.40 mg/dL (0.1-1.2) 07/27/19 09:24 AST 29 units/L (5-40) 07/27/19 09:24 ALT 20 units/L (7-56) 07/27/19 09:24 Alkaline Phosphatase 83 units/L (35-129) 07/27/19 09:24 Total Protein 6.5 g/dL (6.3-8.2) 07/27/19 09:24 Albumin 4.2 g/dL (3.9-5) 07/27/19 09:24 Albumin/Globulin Ratio 1.8 % 07/27/19 09:24 Triglycerides 129 mg/dL (2-149) 07/27/19 09:24 Cholesterol 133 mg/dL (50-199) 07/27/19 09:24 LDL Cholesterol Direct 74 mg/dL (50-130) 07/27/19 09:24 HDL Cholesterol 43 mg/dL (40-59) 07/27/19 09:24 Cholesterol/HDL Ratio 3.09 % 07/27/19 09:24 TSH 3.070 mlU/mL (0.270-4.200) 07/27/19 09:24 Valproic Acid 67.4 ug/mL (50-100) 07/31/19 08:03 RPR Nonreactive (Nonreactive) 07/27/19 09:24 - Discharge Diagnoses (1) Major neurocognitive disorder due to Alzheimer's disease, with behavioral disturbance Status: Acute (2) Schizoaffective disorder, bipolar type Status: Acute Core Measure Documentation - Palliative Care Palliative Care/ Comfort Measures: Not Applicable - Core Measures Any of the following diagnoses?: none Exam - Constitutional Vitals: Temp Pulse Resp BP Pulse Ox 98.0 F 68 18 141/79 100 08/04/19 21:38 08/04/19 21:38 08/04/19 22:18 08/04/19 21:38 08/04/19 21:38 General appearance: Present: no acute distress - EENT Eyes: Present: PERRL, EOM intact ENT: hearing intact, clear oral mucosa - Neck Neck: Present: supple, normal ROM - Respiratory Respiratory effort: normal Plan Activity: advance as tolerated, fall precautions Weight Bearing Status: Weight Bear as Tolerated Care Plan Goals: Maintain a stable mood Plan of Treatment: Take medications as prescribed Health Concerns: Dementia Assessment: Schizoaffective disorder Dementia Follow up with: SUSAN BENNETT MD [Primary Care Provider] - 7 Days Prescriptions: AtorvaSTATin [Lipitor] 40 mg PO QHS #30 Melatonin [Melatonin 5MG TAB] 3 mg PO QHS #30 tablet Mirtazapine [Remeron 30mg TAB] 30 mg PO QHS #30 dilTIAZem CD [Cardizem CD] 120 mg PO DAILY #30 cap Divalproex Sprinkle [Depakote Sprinkle] 500 mg PO Q8H #90 cap Aspirin EC [Halfprin EC] 81 mg PO QDAY #30 tablet Metoprolol Xl [Metoprolol SUCCINATE ER TAB] 50 mg PO DAILY #60 guaiFENesin ER [Mucinex ER] 600 mg PO BID #30 tablet Naproxen [Naproxen DR] 375 mg PO BID #30 Modafinil [Provigil] 100 mg PO DAILY #30 Venlafaxine ER 150 mg PO DAILY #30 OLANzapine ZYDIS [ZyPREXA Zydis] 10 mg PO TID PRN #60 tab.rapdis PRN Reason: Agitation OLANzapine ZYDIS [ZyPREXA Zydis] 5 mg PO TID #90 tab.rapdis
[2019-08-05] MEDS: PROVIGIL PO SCH (11:03)
[2019-08-05] MEDS: NAPROXEN PO SCH (11:04)
[2019-08-05] MEDS: MUCINEX ER PO SCH (11:06)
[2019-08-05] MEDS: EFFEXOR XR PO SCH (11:07)
[2019-08-05 11:11] VITALS: BP 161/92
[2019-08-05] MEDS: CARDIZEM CD PO SCH (11:11)
[2019-08-05] MEDS: METOPROLOL XL PO SCH (11:12)
[2019-08-05] MEDS: HALFPRIN EC PO SCH (11:18)
== END 2019-08-05 13:00 | DRG 885 ==
LOC: UNDOADMIN 22:38 → 3A 22:38 → 5A 23:04
PROVIDERS: ADMIT Psychiatry & Neurology Psychiatry; ATTEND Psychiatry & Neurology Psychiatry
DX: F25.0 Schizoaffective disorder, bipolar type (principal); F02.81 Dementia in other diseases classified elsewhere, unspecified severity, with behavioral disturbance; G30.8 Other Alzheimer's disease; E78.5 Hyperlipidemia, unspecified; I48.91 Unspecified atrial fibrillation; Z88.8 Allergy status to other drugs, medicaments and biological substances; Z88.6 Allergy status to analgesic agent
CPT/HCPCS: 36415; 71045; 80053; 80061; 80164; 82962; 83036; 84443; 85025; 86592; 93005; 93010; G0378; A9270-GY; J1200; J1630; J3486